=== PATIENT | female | born 1975 | race Caucasian/White ===

== ENCOUNTER 2017-03-25 14:24 | Outpatient (CLI) | payer MEDICAID ==
[~2017-03-25] VITALS: Ht 154.9 cm; Wt 117.0 kg
[~2017-03-25 14:24] MED LIST: HYDR-707 PO; [UNRECOGNIZED DRUG - OTHER]
[2017-03-25 14:32] VITALS: BP 132/75
[2017-03-25] MEDS ORDERED: PRAV10TA PO (14:52)
[2017-03-25] MEDS ORDERED: FURO20TA4 PO (14:52)
[2017-03-25 15:05] LABS: BASOPHILS # (AUTO) 0.1 10^3/uL (0.0-0.1); BASOPHILS % (AUTO) 1 % (0-10); EOSINOPHILS # (AUTO) 0.2 10^3/uL (0.0-0.3); EOSINOPHILS % (AUTO) 2 % (0-10); LYMPHOCYTES # (AUTO) 3.3 X 10^3 (1.0-4.0); LYMPHOCYTES % (AUTO) 27 % (12-44); MEAN CORPUSCULAR HEMOGLOBIN 29 PG (25-34); MEAN CORPUSCULAR HGB CONC 33 G/DL (32-36); MEAN CORPUSCULAR VOLUME 87 FL (80-99); MEAN PLATELET VOLUME 10.1 FL (7.4-10.4); MONOCYTES # (AUTO) 0.8 X 10^3 (0.0-1.0); MONOCYTES % (AUTO) 7 % (0-12); NEUTROPHILS # (AUTO) 7.8 X 10^3 (1.8-7.8); NEUTROPHILS % (AUTO) 64 % (42-75); PLATELET COUNT 266 10^3/uL (130-400); RED BLOOD COUNT 4.59 10^6/uL (4.35-5.85); WHITE BLOOD COUNT 12.2 10^3/uL (4.3-11.0)
[2017-03-26] MEDS ORDERED: HYDR-3730 PO (13:50)
== END 2017-03-25 14:45 | disposition home or self-care (01) ==
LOC: PREOP 14:24
PROVIDERS: ATTEND Surgery Pediatric Surgery
DX: Z01.812 Encounter for preprocedural laboratory examination (principal); Z11.2 Encounter for screening for other bacterial diseases; K82.8 Other specified diseases of gallbladder
CPT/HCPCS: 36415; 85025; 87081

== ENCOUNTER 2017-03-26 10:45 | Day surgery (SDC) | payer MEDICAID ==
[~2017-03-26] VITALS: Ht 154.9 cm; Wt 117.0 kg
[~2017-03-26 10:45] MED LIST changes: +FURO20TA4 PO; +PRAV10TA PO
[2017-03-26] MEDS ORDERED: BUP/EPI 0.5% 1:200,000 (SENSORCAINE) 30 ML VIAL ONE (10:46)
--- NOTE | 2017-03-26 10:54 | Progress Note-Pre Operative ---
Pre-Operative Progress Note H&P Reviewed The H&P was reviewed, patient examined and no changes noted. Date H&P Reviewed: March 26, 2017 Time H&P Reviewed: 10:54 Pre-Operative Diagnosis: symptomatic biliary dyskinesia KINZA BURROWS MD March 26, 2017 10:54 am
[2017-03-26] MEDS ORDERED: ACETAMINOPHEN 325 MG TABLET/CAPLET (TYLENOL) PO PRN (11:00)
[2017-03-26] MEDS ORDERED: ONDANSETRON 4 MG/2 ML (SDV) Z0FRAN IVP PRN ×2 (11:00→14:15)
[2017-03-26] MEDS ORDERED: HYDROcodone/APAP 5 MG/325 MG (LORTAB) TAB PO ONE (11:00)
[2017-03-26] MEDS ORDERED: morphine INJ 10 MG/ML 1ML (SYR OR VIAL) IVP PRN (11:00)
[2017-03-26] MEDS ORDERED: ceFAZolin 1 GM/NS 50 ML IVPB IV ONE ×2 (11:15)
[2017-03-26] MEDS ORDERED: SUCCINYLCHOLINE INJ 100 MG/5 ML SYR ONE (11:26)
[2017-03-26] MEDS ORDERED: proPOfol 200 MG/20 ML (DIPRIVAN) VIAL IV ONE (11:26)
[2017-03-26] MEDS ORDERED: SEVOFLURANE (ULTANE) 15 ML INHAL SOLN ONE ×5 (11:26→13:44)
[2017-03-26] MEDS ORDERED: DEXAMETHASONE PF 10 MG/ML (DECADRON) VIAL ONE (11:26)
[2017-03-26] MEDS ORDERED: ONDANSETRON 4 MG/2 ML (SDV) Z0FRAN ONE ×2 (11:26→13:50)
[2017-03-26] MEDS ORDERED: LACTATED RINGERS 1,000 ML IV ONE ×2 (11:26→13:44)
[2017-03-26] MEDS ORDERED: LIDOCAINE PF 2% 10 ML (XYLOCAINE) AMP ONE (11:26)
[2017-03-26] MEDS ORDERED: ROCURONIUM 50 MG/5 ML (ZEMURON) VIAL IV ONE (11:26)
[2017-03-26] MEDS ORDERED: fentaNYL INJECTION 250 MCG/5 ML AMP ONE (11:27)
[2017-03-26 11:30] VITALS: BP 112/64
[2017-03-26] MEDS ORDERED: FAMOTIDINE 20MG/2ML IV (PEPCID) IV ONE (11:30)
[2017-03-26] MEDS: LACTATED RINGERS 1,000 ML IV PRN ×2 (11:30→13:05)
[2017-03-26] MEDS ORDERED: MIDAZOLAM 2 MG/2 ML (VERSED) VIAL ONE (12:20)
--- NOTE | 2017-03-26 13:48 | Progress Note-Post Operative ---
Post-Operative Progess Note Surgeon (s)/Head Animal Keeper (s) Surgeon KINZA BURROWS MD Head Animal Keeper: florecita abdi PRACTICE OR STUDENT TEACHER Pre-Operative Diagnosis SYMPTOMATIC BILIARY DYSKINESIA Post-Operative Diagnosis same Post-Op Procedure Note Date of Procedure: March 26, 2017 Name of Procedure Performed: laparoscopic cholecystectomy Description of the Procedure: laparoscopic cholecystectomy Findings of the Procedure . Anesthesia Type GET Estimated blood loss (mL): minimal Specimen(s) collected/removed gallbladder KINZA BURROWS MD March 26, 2017 1:48 pm
[2017-03-26] MEDS ORDERED: HYDR-3730 PO (13:50)
[2017-03-26] MEDS ORDERED: morphine INJ 10 MG/ML 1ML (SYR OR VIAL) ONE (13:50)
--- NOTE | 2017-03-26 13:51 | Discharge Inst-Surgical ---
D/C Lap Instructions-MARKOS New, Converted, or Re-Newed RX: RX on Chart Follow Up Appt in 2 weeks Activity as tolerated No driving for 24 hours No driving while on pain medications Incentive Spirometry use every 2 hours while awake Regular Diet Symptoms to Report: Fever over 101 degree F, Nausea/Vomiting Infection Signs and Symptoms to report: Increased redness, Foul odor of wound, Increased drainage Bathing instructions: May shower Operative Area Clean/Dry; Keep incision clean/dry If any problems/questions: Contact your physician or go to Emergency Room KINZA BURROWS MD March 26, 2017 1:51 pm
[2017-03-26] MEDS ORDERED: KETOROLAC 30 MG/ML VIAL ONE (13:57)
[2017-03-26] MEDS ORDERED: HYDROmorphone (DILAUDID) 2 MG/ML VIAL ONE (13:57)
[2017-03-26] MEDS ORDERED: NEOSTIGMINE (BLOXIVERZ ) 1 MG/1ML 10 ML VIAL ONE (14:02)
[2017-03-26] MEDS ORDERED: GLYCOPYRROLATE 0.2 MG/ML (ROBINUL) 2 ML VIAL ONE (14:02)
[2017-03-26] MEDS: morphine INJ 10 MG/ML 1ML (SYR OR VIAL) IVP PRN ×2 (14:07→14:11)
[2017-03-26] MEDS ORDERED: MEPERIDINE (DEMEROL) INJ 50 MG/ML IVP PRN (14:15)
[2017-03-26] MEDS ORDERED: KETOROLAC 30 MG/ML VIAL IVP ONE (14:15)
[2017-03-26] MEDS: HYDROmorphone (DILAUDID) 2 MG/ML VIAL IVP PRN ×3 (14:18→14:32)
[2017-03-26 15:05] VITALS: BP 106/73
[2017-03-26 15:35] VITALS: BP 106/67
[2017-03-26] MEDS ORDERED: HYDROcodone/APAP 5 MG/325 MG (LORTAB) TAB ONE (15:44)
[2017-03-26 16:10] VITALS: BP 97/64
[2017-03-26 16:35] VITALS: BP 97/64
--- NOTE | 2017-03-27 06:03 | OPERATIVE REPORT ---
DATE OF SERVICE: 03/26/2017 ATTENDING PHYSICIAN: Dr. Court Stanford. PREOPERATIVE DIAGNOSIS: Symptomatic biliary dyskinesia. POSTOPERATIVE DIAGNOSIS: Symptomatic biliary dyskinesia. PROCEDURE: Laparoscopic cholecystectomy. SURGEON: Dr. Burrows. CLERICAL ADJUSTER: Jose Luis Parker APRN. ANESTHESIA: General endotracheal. ESTIMATED BLOOD LOSS: Minimal. FINDINGS: Mild to moderate gallbladder wall inflammation with omental adhesions to the gallbladder. 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 DISPOSITION: The patient tolerated the procedure well. The patient is a 41-year-old female with right upper abdominal quadrant pain for the past 2 years which has worsened in the past five months. She has severe episodes of pain with radiation towards the back as well as nausea usually after having meals. In April of 2016, she underwent a gallbladder ultrasound which did not show any gallstones. She then underwent a HIDA scan which did show an ejection fraction of 20% as well as severe reproduction of symptoms consistent with symptomatic biliary dyskinesia. She also did undergo an EGD in 2015 and found to have chronic gastritis, which was negative and biopsies negative for H. pylori. DESCRIPTION OF PROCEDURE: The patient was brought to the operating room, laid supine on the table. After adequate IV pain and sedating medications and general endotracheal intubation, the abdomen was prepped and draped in standard surgical fashion. 0.5% Marcaine with epinephrine was then used to anesthetize the overlying skin in the left upper abdominal quadrant and a small transverse skin incision made using a 15 blade. An 0 silk suture was applied to the medial aspect of the incision for traction and a Veress needle inserted with a low opening pressure of 0 mmHg and the abdomen was then insufflated to 15 mmHg pressure. The Veress needle removed and a 5 mm Xcel trocar placed followed by a 5 mm 45 degree angle laparoscope visualizing the peritoneal cavity. A 4 quadrant abdominal exploration was performed. Mild to moderate chronic inflammatory changes of the gallbladder were identified consistent with a chronic acalculous cholecystitis. There were also multiple string-like adhesions along the dome of the right liver consistent with a previous Wwki-Szmt-Dgkpic syndrome. Under direct visualization, we then proceeded to place a supraumbilical 10 mm port after the skin and peritoneum were anesthetized using 0.5% Marcaine with epinephrine and a transverse skin incision made using a 15 blade. In a similar manner, a right upper abdominal quadrant 5 mm port was placed. The patient was then placed in reverse Trendelenburg position as plane right side up, left side down. The omental adhesions to the gallbladder were then taken down using blunt dissection as well as electrocautery on the hook instrument. The hepatoduodenal ligament was then opened using the hook using blunt dissection as well as cautery. The entire critical view of safety was identified including the triangle of Calot as well as the cystic duct and artery going into the gallbladder as well as the liver behind the proximal gallbladder. A timeout was then taken and the cystic duct and artery were then clipped proximally, distally and cut with EndoShears. The gallbladder was then dissected off of the liver bed using cautery on the hook instrument with visualization, good hemostasis as well as no leaking ducts of Luschka. This area was then irrigated and suctioned out as was the right subphrenic space. The gallbladder was removed through the 10 mm port site using an EndoCatch bag. The fascia and peritoneum to the 10 mm port site was then closed under direct visualization using a Jerald-Chetan device and an 0 Vicryl suture. Abdomen was then desufflated and the remaining ports removed. All skin incisions were closed using 4-0 Monocryl running subcuticular sutures. Wounds were then cleaned and covered with Dermabond. The patient tolerated the procedure well. We will start IV and oral pain medication as well as a clear liquid diet. Once she is tolerating clears and has good pain control with oral pain medications and ambulating well, we will discharge her home. Job ID: [id number] DocumentID: [id number] Dictated Date: 03/26/2017 13:55:49 Automotive Fuel Injection Servicer Date: 03/27/2017 06:02:07 Dictated By: KINZA BURROWS MD [facility]
== END 2017-03-26 16:35 | disposition home or self-care (01) ==
LOC: SDC 10:45
PROVIDERS: ATTEND Surgery Pediatric Surgery
DX: K81.1 Chronic cholecystitis (principal); E78.5 Hyperlipidemia, unspecified; Z87.891 Personal history of nicotine dependence; Z79.899 Other long term (current) drug therapy
CPT/HCPCS: 88304; 94664

== ENCOUNTER 2017-04-17 16:28 | Emergency (ER) | payer MEDICAID ==
[~2017-04-17] VITALS: Ht 154.9 cm; Wt 117.0 kg
[~2017-04-17 16:28] MED LIST changes: +HYDR-3730 PO
--- NOTE | 2017-04-17 16:38 | ED GI ---
General Chief Complaint: Abdominal/GI Problems Stated Complaint: STOMACH PAIN/CRAMPING/NAUSEA Nursing Triage Note: c/o epigastric pain with back pain Sepsis Screen: No Definite Risk Source of Information: Patient Exam Limitations: No Limitations History of Present Illness Time Seen By Provider: 16:37 Initial Comments To ER with epigastric discomfort, back pain, burning sensation in her chest and throat. This began last night. She took Pepto-Bismol at home and an antacid without relief. She had a laparoscopic cholecystectomy done here by Dr. Burrows on 03/26/17. Timing/Duration: 12-24 Hours Severity/Quality: Moderate Location: Epigastric Radiation: No Radiation Activities at Onset: None Associated Symptoms: Nausea/Vomiting Allergies and Home Medications Allergies Coded Allergies: NKANo Known Allergies (Verified Allergy, Unknown, 12/29/05) Home Medications Furosemide 20 Mg Tablet, 10 MG PO DAILY PRN for LEG SWELLING, (Reported) TAKE 1/2 OF 20MG TAB Hydrocodone/Acetaminophen 1 Each Tablet, 1-2 EACH PO Q4H, #35 Prescribed by: KINZA BURROWS on 03/26/17 1350 Pravastatin Sodium 10 Mg Tablet, 10 MG PO HS, (Reported) Review of Systems Constitutional: see HPI, No chills, No fever EENTM: No Symptoms Reported Respiratory: No Symptoms Reported Cardiovascular: No Symptoms Reported Gastrointestinal: See HPI, Abdominal Pain, Nausea, Vomiting Genitourinary: No Symptoms Reported Musculoskeletal: no symptoms reported Skin: no symptoms reported Psychiatric/Neurological: No Symptoms Reported Endocrine: No Symptoms Reported Past Dsktdwt-Ydvjlr-Dzaxjw Hx Patient Social History Alcohol Use: Occasionally Uses Recreational Drug Use: No Smoking Status: Former Smoker Type Used: Cigarettes Recent Foreign Travel: No Contact w/Someone Who Travel: No Recent Infectious Disease Expo: No Recent Hopitalizations: No Immunizations Up To Date Tetanus Booster (TDap): Unknown Seasonal Allergies Seasonal Allergies: No Surgeries HX Surgeries: Yes (C/S x4 ) Surgeries: Appendectomy, Section, Gallbladder, Hysterectomy, Tonsillectomy Respiratory Hx Respiratory Disorders: No Cardiovascular Hx Cardiac Disorders: No Cardiac Disorders: High Cholesterol Neurological Hx Neurological Disorders: No Reproductive System PRIVACY ANALYST History: Hysterectomy Genitourinary Hx Genitourinary Disorders: No Gastrointestinal Hx Gastrointestinal Disorders: Yes Gastrointestinal Disorders: Gall Bladder Disease Musculoskeletal Hx Musculoskeletal Disorders: Yes Musculoskeletal Disorders: Arthritis, Chronic Back Pain Endocrine Hx Endocrine Disorders: No HEENT HX ENT Disorders: No Loss of Vision: Denies Hearing Impairment: Denies Cancer Hx Cancer: No Psychosocial Hx Psychiatric Problems: No Integumentary HX Skin/Integumentary Disorder: No Blood Transfusions Hx Blood Disorders: No Physical Exam Vital Signs VS - Last 72 Hours, by Label 04/17/17 16:34 Temp 98.8 Pulse 81 Resp 18 B/P (MAP) 120/62 Pulse Ox 96 Capillary Refill : Less Than 3 Seconds General Appearance: WD/WN, no apparent distress, obese HEENT: PERRL/EOMI, normal ENT inspection Neck: non-tender, full range of motion Respiratory: normal breath sounds, no respiratory distress, no accessory muscle use Gastrointestinal: normal bowel sounds, non tender, soft Extremities: normal range of motion, non-tender, normal inspection Neurologic/Psychiatric: alert, normal mood/affect, oriented x 3 Skin: normal color, warm/dry Progress/Results/Core Measures Results/Orders Lab Results Laboratory Tests Test 04/17/17 16:35 04/17/17 16:40 Range/Units Urine Color YELLOW Urine Clarity CLEAR Urine pH 6 5-9 Urine Specific [place] 1.020 1.016-1.022 Urine Protein NEGATIVE NEGATIVE Urine Glucose (UA) NEGATIVE NEGATIVE Urine Ketones NEGATIVE NEGATIVE Urine Nitrite NEGATIVE NEGATIVE Urine Bilirubin NEGATIVE NEGATIVE Urine Urobilinogen NORMAL NORMAL MG/DL Urine Leukocyte Esterase NEGATIVE NEGATIVE Urine RBC (Auto) NEGATIVE NEGATIVE Urine RBC NONE /HPF Urine WBC NONE /HPF Urine Squamous Epithelial Cells 10-25 H /HPF Urine Crystals NONE /LPF Urine Bacteria NONE /HPF Urine Casts NONE /LPF Urine Mucus NEGATIVE /LPF Urine Culture Indicated NO White Blood Count 10.9 4.3-11.0 10^3/uL Red Blood Count 4.92 4.35-5.85 10^6/uL Hemoglobin 14.0 11.5-16.0 G/DL Hematocrit 43 35-52 % Mean Corpuscular Volume 86 80-99 FL Mean Corpuscular Hemoglobin 29 25-34 PG Mean Corpuscular Hemoglobin Concent 33 32-36 G/DL Red Cell Distribution Width 13.9 10.0-14.5 % Platelet Count 300 130-400 10^3/uL Mean Platelet Volume 10.2 7.4-10.4 FL Neutrophils (%) (Auto) 66 42-75 % Lymphocytes (%) (Auto) 25 12-44 % Monocytes (%) (Auto) 8 0-12 % Eosinophils (%) (Auto) 2 0-10 % Basophils (%) (Auto) 1 0-10 % Neutrophils # (Auto) 7.1 1.8-7.8 X 10^3 Lymphocytes # (Auto) 2.7 1.0-4.0 X 10^3 Monocytes # (Auto) 0.9 0.0-1.0 X 10^3 Eosinophils # (Auto) 0.2 0.0-0.3 10^3/uL Basophils # (Auto) 0.1 0.0-0.1 10^3/uL Sodium Level 137 135-145 MMOL/L Potassium Level 3.6 3.6-5.0 MMOL/L Chloride Level 108 H 98-107 MMOL/L Carbon Dioxide Level 23 21-32 MMOL/L Anion Gap 6 5-14 MMOL/L Blood Urea Nitrogen 10 7-18 MG/DL Creatinine 0.77 0.60-1.30 MG/DL Estimat Glomerular Filtration Rate > 60 BUN/Creatinine Ratio 13 Glucose Level 210 H 70-105 MG/DL Calcium Level 8.6 8.5-10.1 MG/DL Total Bilirubin 0.4 0.1-1.0 MG/DL Aspartate Amino Transf (AST/SGOT) 11 5-34 U/L Alanine Aminotransferase (ALT/SGPT) 12 0-55 U/L Alkaline Phosphatase 61 40-136 U/L Total Protein 6.3 L 6.4-8.2 G/DL Albumin 3.6 3.2-4.5 G/DL Lipase 16 8-78 U/L My Orders Orders - HECTOR STEPHENS SUPERVISOR LIME Cbc With Automated Diff (04/17/17 16:32) Comprehensive Metabolic Panel (04/17/17 16:32) Lipase (04/17/17 16:32) Ua Culture If Indicated (04/17/17 16:32) Ondansetron Oral Dissolve Tab (Zofran (04/17/17 16:45) Antacid Suspension (Mylanta Suspension (04/17/17 16:45) Lidocaine 2% Viscous 15 Ml (Xylocaine Vi (04/17/17 16:45) Medications Given in ED Current Medications Medications Dose Ordered Sig/Adelaida Route Start Time Stop Time Status Last Admin Dose Admin Al Hydrox/Mg Hydrox/Simethicone 30 ml ONCE ONCE PO 04/17/17 16:45 04/17/17 16:46 DC 04/17/17 16:44 30 ML Lidocaine HCl 15 ml ONCE ONCE PO 04/17/17 16:45 04/17/17 16:46 DC 04/17/17 16:44 15 ML Ondansetron HCl 4 mg ONCE ONCE PO 04/17/17 16:45 04/17/17 16:46 DC 04/17/17 16:44 4 MG Vital Signs/I&O Vital Sign - Last 12Hours 04/17/17 16:34 Temp 98.8 Pulse 81 Resp 18 B/P (MAP) 120/62 Pulse Ox 96 Blood Pressure Mean: 81 Departure Impression Impression: Primary Impression: GERD (gastroesophageal reflux disease) Disposition: HOME, SELF-CARE Condition: Stable Departure-Patient Inst. Decision time for Depature: 17:20 Referrals: VANESSA BULLARD MD (PCP) Primary Care Physician Patient Instructions: Acid Reflux (Gastroesophageal Reflux Disease) in Adults Add. Discharge Instructions: 1. Return to ER for any concerns 2. Follow-up with your doctor later this week 3. Acid assurance senior as directed All discharge instructions reviewed with patient and/or family. Voiced understanding. Scripts Famotidine (Pepcid) 20 Mg Tablet 20 MG PO BID, #10 TAB Prov: HECTOR STEPHENS APRN 04/17/17 Ondansetron (Zofran Odt) 8 Mg Tab.rapdis 8 MG PO Q6H Y for NAUSEA/VOMITING-1ST LINE, #10 TAB Prov: HECTOR STEPHENS APRN 04/17/17 HECTOR STEPHENS APRN April 17, 2017 16:38
[2017-04-17] MEDS ORDERED: ONDANSETRON 4 MG (ZOFRAN) ORAL DISSOLVE TAB PO ONE (16:45)
[2017-04-17] MEDS ORDERED: LIDOCAINE 2% VISCOUS 15 ML UDC PO ONE (16:45)
[2017-04-17] MEDS ORDERED: ANTACID SUSP 30 ML UDC (MYLANTA) PO ONE (16:45)
[2017-04-17 16:52] LABS: BILIRUBIN,URINE NEGATIVE (NEGATIVE); KETONES,URINE NEGATIVE (NEGATIVE); LEUKOCYTE ESTERASE ,URINE NEGATIVE (NEGATIVE); NITRITE,URINE NEGATIVE (NEGATIVE); PH,URINE 6 (5-9); PROTEIN,URINE NEGATIVE (NEGATIVE); UROBILINOGEN,URINE NORMAL (NORMAL)
[2017-04-17 16:54] LABS: BASOPHILS # (AUTO) 0.1 10^3/uL (0.0-0.1); BASOPHILS % (AUTO) 1 % (0-10); EOSINOPHILS # (AUTO) 0.2 10^3/uL (0.0-0.3); EOSINOPHILS % (AUTO) 2 % (0-10); LYMPHOCYTES # (AUTO) 2.7 X 10^3 (1.0-4.0); LYMPHOCYTES % (AUTO) 25 % (12-44); MEAN CORPUSCULAR HEMOGLOBIN 29 PG (25-34); MEAN CORPUSCULAR HGB CONC 33 G/DL (32-36); MEAN CORPUSCULAR VOLUME 86 FL (80-99); MEAN PLATELET VOLUME 10.2 FL (7.4-10.4); MONOCYTES # (AUTO) 0.9 X 10^3 (0.0-1.0); MONOCYTES % (AUTO) 8 % (0-12); NEUTROPHILS # (AUTO) 7.1 X 10^3 (1.8-7.8); NEUTROPHILS % (AUTO) 66 % (42-75); PLATELET COUNT 300 10^3/uL (130-400); RED BLOOD COUNT 4.92 10^6/uL (4.35-5.85); RED CELL DISTRIBUTION WIDTH 13.9 % (10.0-14.5); WHITE BLOOD COUNT 10.9 10^3/uL (4.3-11.0)
[2017-04-17 17:11] LABS: ALANINE AMINOTRANSFERASE 12 U/L (0-55); ALBUMIN 3.6 G/DL (3.2-4.5); ANION GAP 6 MMOL/L (5-14); ASPARTATE AMINO TRANSFERASE 11 U/L (5-34); BILIRUBIN,TOTAL 0.4 MG/DL (0.1-1.0); BLOOD UREA NITROGEN 10 MG/DL (7-18); BUN/CREATININE RATIO 13; CALCIUM 8.6 MG/DL (8.5-10.1); CARBON DIOXIDE 23 MMOL/L (21-32); CHLORIDE 108 MMOL/L (98-107); CREATININE SERUM 0.77 MG/DL (0.60-1.30); GFR ESTIMATED > 60; GLUCOSE 210 MG/DL (70-105); LIPASE 16 U/L (8-78); POTASSIUM 3.6 MMOL/L (3.6-5.0); SODIUM 137 MMOL/L (135-145); TOTAL PROTEIN 6.3 G/DL (6.4-8.2)
[2017-04-17] MEDS ORDERED: ONDA8TAB9 PO (17:21)
[2017-04-17] MEDS ORDERED: FAMO-119 PO (17:21)
[2017-04-17 17:28] VITALS: BP 120/62
== END 2017-04-17 17:28 | disposition home or self-care (01) ==
LOC: EDUNIT# 16:28 → ER 16:30
DX: K21.9 Gastro-esophageal reflux disease without esophagitis (principal); Z90.49 Acquired absence of other specified parts of digestive tract; Z98.890 Other specified postprocedural states
CPT/HCPCS: 36415; 80053; 81000; 83690; 85025; 99283

== ENCOUNTER → 2018-05-11 | Outpatient (CLI) | payer MEDICAID ==
[~2018-05-11] MED LIST changes: +FAMO-119 PO; +ONDA8TAB9 PO
--- NOTE | 2018-05-11 13:01 | Diagnostic Imaging Report ---
INDICATION: Mid back pain all the way down for the past five to six years. No known injury. TECHNIQUE: AP, Lateral and Spot imaging of the lumbar spine CORRELATION STUDY: None FINDINGS: Alignment relatively anatomic. Lumbar vertebral body heights are maintained. Multilevel endplate spurring is present at all levels. The disc spaces overall appear to be the fairly well-maintained. Mild hypertrophic change suggested about the lower lumbar spine facet joints. SI joints unremarkable. Cholecystectomy clips in upper quadrant. Additional suture line in the bilateral hemipelvis. IMPRESSION: No radiographic evidence for acute bony abnormality of the lumbar spine. Mild multilevel degenerative changes present. Dictated by: Dictated on workstation # [id number]
--- NOTE | 2018-05-11 16:20 | Diagnostic Imaging Report ---
INDICATION: Pain and swelling from the instep to the back of the heel x2 years. No known injury. TECHNIQUE: Three views of the left foot. CORRELATION STUDY: None. FINDINGS: There is somewhat of a pes cavum alignment. Slight hallux valgus and primus varus alignment also noted. Incidental note made of a bipartite medial sesamoid bone. Very slight narrowing of the first MTP joint. Remainder of the joint spaces is overall fairly well maintained. Very slight beaking of the navicular bone proximally. There is prominent, 6 mm spurring about the plantar aspect of the calcaneus. Enthesopathy about the Achilles tendon insertion site. Soft tissues appearing unremarkable. IMPRESSION: 1. Somewhat prominent pes cavum alignment of the foot. 2. Prominent plantar calcaneal spur formation. Dictated by: Dictated on workstation # [id number]
--- NOTE | 2018-05-11 16:33 | Diagnostic Imaging Report ---
INDICATION: Mid back pain extending down the spine x5-6 years. No known injury. TECHNIQUE: AP, lateral and swimmer's imaging of the thoracic spine. CORRELATION STUDY: None. FINDINGS: There is slightly accentuated thoracic kyphotic curvature. Thoracic vertebral body heights demonstrate minimal areas of wedging anteriorly. No overall significant loss of vertebral body height. Diffuse thoracic spondylosis and disc space narrowing with reactive endplate sclerosis and osteophyte formation noted diffusely. Partially visualized lower cervical spine demonstrates disc space narrowing and prominent bulky anterior osteophytes to be present. Surgical clips in the epigastric region presumably cholecystectomy clips are present. IMPRESSION: At least moderate severity thoracic spondylosis. Disc space narrowing with reactive endplate osteophyte formation noted. Slightly accentuated thoracic kyphotic curvature. Incidentally noted what appears to be degenerative change about the lower cervical spines with rather prominent large anterior osteophytes present. Dictated by: Dictated on workstation # [id number]
== END ==
LOC: RAD 09:51
PROVIDERS: ATTEND Family Medicine
DX: S89.92XA Unspecified injury of left lower leg, initial encounter (principal); M47.815 Spondylosis without myelopathy or radiculopathy, thoracolumbar region; M51.34 Other intervertebral disc degeneration, thoracic region; M77.32 Calcaneal spur, left foot
CPT/HCPCS: 72072; 72100; 73630

== ENCOUNTER 2018-07-31 14:04 | Emergency (ER) | payer MEDICAID ==
[~2018-07-31] VITALS: Ht 154.9 cm; Wt 77.1 kg
--- OUTSIDE RECORDS SUMMARY | 2018-07-31 14:09 | XMS REPORT ---
Author Author STEPHANIE ATKINS [facility] Address Unknown Care Team Providers Care Veterinary Technologist Name Role Phone STEPHANIE ATKINS Unavailable PROBLEMS Type Condition ICD9-CM Code EHS25-PL Code Onset Dates Condition Status SNOMED Code Problem Edema 782.3 Active 92831967 Problem Unspecified cellulitis and abscess of toe 681.10 Active 064072962 Problem Lumbago 724.2 Active 740015614 Problem Counseling on substance use and abuse V65.42 Active 439559805 Problem Other and unspecified hyperlipidemia 272.4 Active 46714885 Problem External thrombosed hemorrhoids 455.4 Active 21185462 Problem Unspecified constipation 564.00 Active 66285916 Problem Blood in stool 578.1 Active 706508263 Problem Unspecified hemorrhoids without mention of complication 455.6 Active 64016103 Problem Acute maxillary sinusitis 461.0 Active 40181155 ALLERGIES Substance Reaction Event Type Date Status N.K.D.A. Unknown Non Drug Allergy Oct, Unknown SOCIAL HISTORY No smoking Hx information available PLAN OF CARE VITAL SIGNS Height 61 in 2016-11-07 Blood pressure systolic 115 mmHg 2016-11-07 Blood pressure diastolic 58 mmHg 2016-11-07 MEDICATIONS Unknown Medications RESULTS No Results PROCEDURES Procedure Date Ordered Related Diagnosis Body Site LTD ORAL EVALUATION - PROBLEM FOCUS Nov 07, 2016 INTRAORL-PERIAPICAL 1 FILM 90314 Nov 07, 2016 EXTRAC ERUPTED TOOTH/EXPOSED ROOT Nov 07, 2016 IMMUNIZATIONS No Known Immunizations
--- OUTSIDE RECORDS SUMMARY | 2018-07-31 14:09 | XMS REPORT ---
Author Author LUMA BELL Organization [facility] Address [address] [place] [address] Care Team Providers Care Wrapper And Preserver Name Role Phone LUMA BELL Unavailable PROBLEMS Type Condition ICD9-CM Code BBO44-GF Code Onset Dates Condition Status SNOMED Code Problem Edema 782.3 Active 224946484 Problem Unspecified cellulitis and abscess of toe 681.10 Active 050962359 Problem Lumbago 724.2 Active 541394293 Problem Counseling on substance use and abuse V65.42 Active 519123917 Problem Other and unspecified hyperlipidemia 272.4 Active 23667686 Problem External thrombosed hemorrhoids 455.4 Active 72811618 Problem Unspecified constipation 564.00 Active 24579644 Problem Blood in stool 578.1 Active 514309681 Problem Unspecified hemorrhoids without mention of complication 455.6 Active 61452462 Problem Acute maxillary sinusitis 461.0 Active 50435246 ALLERGIES No Information ENCOUNTERS Encounter Location Date Diagnosis [facility] [id number] [place] [address] Jul, No condition on [place] I Z03.89 [facility] [id number] [place] [phone] Oct, Dental examination Z01.20 and Dental caries K02.9 [facility] [id number] [place] [address] Feb, [facility] [address] [address] Feb, [facility] [id number] [place] [phone] Dec, [facility] [id number] [place] [address] Dec, [facility] [address] [id number] [place] [phone] Jul, [facility] [address] [address] Jul, [facility] [address] [id number] [place] [id number] Feb, [facility] [address] [address] Feb, [facility] [address] [id number] [place] [id number] Feb, [facility] [address] [address] Feb, [facility] [address] [id number] [place] [id number] Oct, [facility] [address] [address] Oct, [facility] [address] [id number] [place] [id number] March, [facility] [address] [id number] [place] [id number] March, [facility] [address] [id number] [place] [id number] Dec, [facility] [address] [id number] [place] [id number] Dec, [facility] [address] [address] Dec, [facility] [address] [id number] [place] [id number] Dec, [facility] [address] [facility] [id number] [place] [phone] Dec, [facility] [address] [address] Dec, [facility] [address] [address] Aug, [facility] [address] [facility] [id number] [place] [address] Aug, [facility] [address] [facility] [id number] [place] [address] Jun, [facility] [address] [facility] [id number] [place] [address] Apr, IMMUNIZATIONS No Known Immunizations SOCIAL HISTORY Never Assessed REASON FOR VISIT Psychological evaluation for bariatric surgery. PLAN OF CARE VITAL SIGNS MEDICATIONS Unknown Medications RESULTS No Results PROCEDURES Procedure Date Ordered Result Body Site Psych diagnostic evaluation, new patient Jul 28, 2017 INSTRUCTIONS MEDICATIONS ADMINISTERED No Known Medications
--- OUTSIDE RECORDS SUMMARY | 2018-07-31 14:10 | XMS REPORT | Continuity of Care Document ---
Author Author Formerly [facility] Address Unknown Phone Unavailable Allergies Active Description Code Type Severity Reaction Onset Reported/Identified Relationship to Patient Clinical Status Yes NO KNOWN DRUG ALLERGIES UNKNOWN NO KNOWN DRUG ALLERG Yes [id number] REDUCTASE INHIBITORS UNKNOWN GI PROBLEMS - DIARRH 10/22 Yes NKANo Known Allergies NKA Miscellaneous Allergy Unknown N/A 12/29/2005 Medications Medication Packaging Start Date Stop Date Route Dosage Sig NORMAL SALINE 1000CC IV BAG INJ 0.9 % (NS 1000CC IV BAG) ml 09/18/2017 10/03/2017 CONTINUOUSEVERY 0 Hour LACTATED RINGERS 1000CC IV BAG INJ ml 10/02/2017 10/03/2017 CONTINUOUSEVERY 0 Hour FENTANYL INJ 100 MCG/2CC VIAL MCG 10/21/2017 10/21/2017 ONCE&0644 LACTATED RINGERS 1000CC IV BAG INJ ml 10/21/2017 10/22/2017 CONTINUOUSEVERY 0 Hour SCOPOLAMINE PATCH PAT 1.5 MG (TRANSDERM SCOP) MG 10/21/2017 10/21/2017 ONCE&0800 CEFAZOLIN VIAL INJ 1 GM (ANCEF) GM 10/21/2017 10/21/2017 ONCE&0845 METOCLOPRAMIDE VIAL INJ 10 MG/2CC (REGLAN 2CC VIAL) MG 10/21/2017 10/21/2017 ONCE&1158 MORPHINE ASSOCIATE MERCHANDISE PLANNER SYRINGE INJ 30 MG/30CC (MORPHINE ASSOCIATE MERCHANDISE PLANNER SYRINGE) MG 10/21/2017 10/24/2017 CONTINUOUSEVERY 0 Hour SUCRALFATE TAB 1 GM (CARAFATE) GM 10/21/2017 10/28/2017 QID&0000,0600,1200,1800 PROMETHAZINE VIAL INJ 25 MG/CC (PHENERGAN VIAL) MG 10/21/2017 10/31/2017 PRN QID ENALAPRIL VIAL INJ 1.25 MG/CC (VASOTEC VIAL) MG 10/21/2017 10/24/2017 PRN Q6H DIAZEPAM SYRINGE INJ 5 MG/CC (VALIUM SYRINGE) MG 10/21/2017 10/28/2017 PRN Q6H NORMAL SALINE 1000CC IV BAG INJ 0.9 % (NS 1000CC IV BAG) ml 10/21/2017 11/05/2017 CONTINUOUSEVERY 0 Hour ONDANSETRON VIAL INJ 4 MG/2CC (ZOFRAN 2CC VIAL) MG 10/21/2017 10/28/2017 PRN Q4H ALBUTEROL SVN 2.5MG/3CC LIQ 2.5 MG (PROVENTIL BREANNA 2.5MG/3CC) MG 10/21/2017 10/23/2017 PRN TID CEFAZOLIN PREMIX IV BAG IV 1 GM/50CC (ANCEF PREMIX IV BAG) GM 10/21/2017 10/21/2017 Q8H&1400 PANTOPRAZOLE TAB 40 MG (PROTONIX) MG 10/21/2017 10/28/2017 BID&0800,2000 Heparin, FLUSH IV syringe 500 units UNITS 10/21/2017 10/31/2017 BID&0800,2000 CEFAZOLIN PREMIX IV BAG IV 1 GM/50CC (ANCEF PREMIX IV BAG) GM 10/21/2017 10/22/2017 TID&0800 PANTOPAZOLE VIAL INJ 40 MG (PROTONIX IV) MG 10/22/2017 10/31/2017 Daily&0900 HYDROMORPHONE TAB 2 MG (DILAUDID) MG 10/22/2017 10/22/2017 ONCE&1047 HYDROCODONE/APAP 7.5/325 ELIX LIQ 15 CC (LORTAB ELIX 7.5/325) ML 10/22/2017 11/01/2017 PRN Q4H Hydromorphone inj 2mg/cc vial (Dilaudid) MG 10/22/2017 10/22/2017 ONCE&1750 POLY/BACI/NEOM OINT OINT (NEOSPORIN) tripp 10/24/2017 10/24/2017 ONCE&1848 PHENAZOPYRIDINE TAB 100 MG (PYRIDIUM) MG 01/31/2018 01/31/2018 ONCE&1522 KETOROLAC VIAL INJ 30 MG/CC (TORADOL VIAL) MG 01/31/2018 01/31/2018 PRN ONCE NORMAL SALINE 500CC IV BAG INJ 0.9 % (NS 500CC IV BAG) ml 01/31/2018 01/31/2018 ONCE&1559 FENTANYL INJ 100 MCG/2CC VIAL MCG 01/31/2018 01/31/2018 ONCE&1623 TAMSULOSIN CAP 0.4 MG (FLOMAX) MG 01/31/2018 01/31/2018 ONCE&1710 TAMSULOSIN CAP 0.4 MG (FLOMAX) MG 01/31/2018 02/06/2018 QPM&1800 TIZANIDINE TAB 4 MG (ZANAFLEX) MG 01/31/2018 02/07/2018 PRN BID SUCRALFATE TAB 1 GM (CARAFATE) GM 01/31/2018 02/07/2018 TID&0800,1400,2000 PANTOPRAZOLE TAB 40 MG (PROTONIX) MG 02/01/2018 02/07/2018 Daily&0900 FUROSEMIDE TAB 20 MG (LASIX) MG 10/201802/07/2018 Daily&0900 MELOXICAM TAB 7.5 MG (MOBIC) MG 10/201802/07/2018 Daily&0900 LACTATED RINGERS 1000CC IV BAG INJ ml 05/14/2018 05/15/2018 CONTINUOUSEVERY 0 Hour Problems Date Dx Coded Attending Type Code Diagnosis Diagnosed By 05/08/2010 V70.5 PREEMPLOYMENT/ PRESCHOOL EXAM 05/08/2010 SEAN REDMOND DO V70.5 PREEMPLOYMENT/PRESCHOOL EXAM 05/08/2010 SEAN REDMOND DO V70.5 PREEMPLOYMENT/PRESCHOOL EXAM 05/29/2010 278.00 OBESITY, UNSPECIFIED 05/29/2010 780.79 OTHER MALAISE AND FATIGUE 05/29/2010 786.09 RESPIRATORY ABNORMALITIES, OTHER 05/29/2010 SEAN REDMOND DO 278.00 OBESITY, UNSPECIFIED 05/29/2010 SEAN REDMOND DO 780.79 OTHER MALAISE AND FATIGUE 05/29/2010 SEAN REDMOND DO 786.09 RESPIRATORY ABNORMALITIES, OTHER 05/29/2010 SEAN REDMOND DO 278.00 OBESITY, UNSPECIFIED 05/29/2010 SEAN REDMOND DO 780.79 OTHER MALAISE AND FATIGUE 05/29/2010 SEAN REDMOND DO 786.09 RESPIRATORY ABNORMALITIES, OTHER 06/17/2010 250.00 DIABETES MELLITUS TYPE 2 06/17/2010 SEAN REDMOND DO 250.00 DIABETES MELLITUS TYPE 2 06/17/2010 SEAN REDMOND DO 250.00 DIABETES MELLITUS TYPE 2 07/03/2010 305.1 NONDEPENDENT ABUSE OF DRUGS, TOBACCO USE DISORDER 07/03/2010 SEAN REDMOND DO 305.1 NONDEPENDENT ABUSE OF DRUGS, TOBACCO USE DISORDER 07/03/2010 SEAN REDMOND DO 305.1 NONDEPENDENT ABUSE OF DRUGS, TOBACCO USE DISORDER 08/28/2011 459.81 VENOUS INSUFFICIENCY 08/28/2011 465.9 UPPER RESPIRATORY INFECTION 08/28/2011 V03.82 Need For Vaccination Pneumococcal 08/28/2011 V04.81 Vaccines Prophylactic Need Against Influenza 08/28/2011 SEAN REDMOND DO 459.81 VENOUS INSUFFICIENCY 08/28/2011 SEAN REDMOND DO 465.9 UPPER RESPIRATORY INFECTION 08/28/2011 SEAN REDMOND DO V03.82 Need For Vaccination Pneumococcal 08/28/2011 SEAN REDMOND DO V04.81 Vaccines Prophylactic Need Against Influenza 08/28/2011 SEAN REDMOND DO 459.81 VENOUS INSUFFICIENCY 08/28/2011 SEAN REDMOND DO 465.9 UPPER RESPIRATORY INFECTION 08/28/2011 SEAN REDMOND DO V03.82 Need For Vaccination Pneumococcal 08/28/2011 SEAN REDMOND DO V04.81 Vaccines Prophylactic Need Against Influenza 08/29/2011 278.01 OBESITY MORBID 08/29/2011 SEAN REDMOND DO 278.01 OBESITY MORBID 08/29/2011 SEAN REDMODN DO 278.01 OBESITY MORBID 12/26/2011 455.4 EXTERNAL THROMBOSED HEMORRHOIDS 12/26/2011 724.2 BACK PAIN, LOWER 12/26/2011 SEAN REDMOND DO 455.4 EXTERNAL THROMBOSED HEMORRHOIDS 12/26/2011 SEAN REDMOND DO 724.2 BACK PAIN, LOWER 12/26/2011 SEAN REDMOND DO 455.4 EXTERNAL THROMBOSED HEMORRHOIDS 12/26/2011 SEAN REDMOND DO 724.2 BACK PAIN, LOWER 01/05/2012 455.6 HEMORRHOIDS 01/05/2012 564.00 CONSTIPATION 01/05/2012 578.1 HEMATOCHEZIA 01/05/2012 SEAN REDMOND DO 455.6 HEMORRHOIDS 01/05/2012 SEAN REDMOND DO 564.00 CONSTIPATION 01/05/2012 SEAN REDMOND DO 578.1 HEMATOCHEZIA 01/05/2012 NYLA MAKIMILIA K 455.6 HEMORRHOIDS 01/05/2012 REDMOND SEAN MAKI K 564.00 CONSTIPATION 01/05/2012 REDMOND SEAN MAKI K 578.1 HEMATOCHEZIA 01/07/2012 272.4 DYSLIPIDEMIA 01/07/2012 NYLA MAKIMILIA K 272.4 DYSLIPIDEMIA 01/07/2012 NYLA MAKIMILIA K 272.4 DYSLIPIDEMIA 04/01/2012 V65.42 Intervention And Counseling On Cessation Of Tobacco Use 04/01/2012 REDMOND MILI MAKIA K V65.42 Intervention And Counseling On Cessation Of Tobacco Use 04/01/2012 NYLA MAKI SEAN K V65.42 Intervention And Counseling On Cessation Of Tobacco Use 11/09/2012 681.10 CELLULITIS OF THE TOE LEFT FOOT 11/09/2012 REDMOND SEAN MAKI K 681.10 CELLULITIS OF THE TOE LEFT FOOT 11/09/2012 REDMOND MILI MAKIA K 681.10 CELLULITIS OF THE TOE LEFT FOOT 03/03/2014 SEAN REDMOND DO K 782.3 EDEMA 03/03/2014 REDMOND MILI MAKIA K 782.3 EDEMA 08/14/2014 REDMOND MILI MAKIA K 461.0 ACUTE MAXILLARY SINUSITIS 03/25/2017 KINZA BURROWS MD, Ot K82.8 OTHER SPECIFIED DISEASES OF GALLBLADDER 03/25/2017 KINZA BURROWS MD Ot Z01.812 ENCOUNTER FOR PREPROCEDURAL LABORATORY E 03/25/2017 KINZA BURROWS MD, Ot Z11.2 ENCOUNTER FOR SCREENING FOR OTHER BACTER 03/26/2017 KINZA BURROWS MD, Ot E78.5 HYPERLIPIDEMIA, UNSPECIFIED 03/26/2017 KINZA BURROWS MD, Ot K81.1 CHRONIC CHOLECYSTITIS 03/26/2017 KINZA BURROWS MD, Ot Z79.899 OTHER ALF (CURRENT) DRUG THERAPY 03/26/2017 KINZA BURROWS MD, Ot Z87.891 PERSONAL HISTORY OF NICOTINE DEPENDENCE 04/01/2017 KINZA BURROWS MD, Ot E78.5 HYPERLIPIDEMIA, UNSPECIFIED 04/01/2017 KINZA BURROWS MD, Ot K81.1 CHRONIC CHOLECYSTITIS 04/01/2017 KINZA BURROWS MD, Ot Z79.899 OTHER SCREENING REPRESENTATIVE (CURRENT) DRUG THERAPY 04/01/2017 MARKOS OVERTON, KINZA Ot Z87.891 PERSONAL HISTORY OF NICOTINE DEPENDENCE 04/17/2017 HECTOR DONAHUE DATA REPORT ANALYST Ot K21.9 GASTRO-ESOPHAGEAL REFLUX DISEASE WITHOUT 04/17/2017 HECTOR DONAHUE DATA REPORT ANALYST Ot R10.13 EPIGASTRIC PAIN 04/17/2017 HECTOR DONAHUE DATA REPORT ANALYST Ot Z90.49 ACQUIRED ABSENCE OF OTHER SPECIFIED PART 04/17/2017 HECTOR DONAHUE DATA REPORT ANALYST Ot Z98.890 OTHER SPECIFIED POSTPROCEDURAL STATES 04/21/2017 HECTOR DONAHUE DATA REPORT ANALYST Ot K21.9 GASTRO-ESOPHAGEAL REFLUX DISEASE WITHOUT 04/21/2017 HECTOR DONAHUE DATA REPORT ANALYST Ot R10.13 EPIGASTRIC PAIN 04/21/2017 HECTOR DONAHUE APRN Ot Z90.49 ACQUIRED ABSENCE OF OTHER SPECIFIED PART 04/21/2017 HECTOR DONAHUE DATA REPORT ANALYST Ot Z98.890 OTHER SPECIFIED POSTPROCEDURAL STATES 09/03/2017 BULLARD, VANESSA A 782.3 EDEMA 09/03/2017 BULLARD, VANESSA A R60.0 LOCALIZED EDEMA 09/03/2017 BULLARD, VANESSA W 110.4 DERMATOPHYTOSIS OF FOOT 09/03/2017 BULLARD, VANESSA A 782.3 EDEMA 09/03/2017 BULLARD, VANESSA W B35.3 TINEA PEDIS 09/03/2017 BULLARD, VANESSA A R60.0 LOCALIZED EDEMA 09/03/2017 BULLARD, VANESSA W 110.4 DERMATOPHYTOSIS OF FOOT 09/03/2017 BULLARD, VANESSA A 782.3 EDEMA 09/03/2017 BULLARD, VANESSA W B35.3 TINEA PEDIS 09/03/2017 BULLARD, VANESSA A R60.0 LOCALIZED EDEMA 09/18/2017 Mikey Gonzáles 780.60 FEVER, UNSPECIFIED 09/18/2017 Mikey Gonzáles R50.9 FEVER, UNSPECIFIED 09/18/2017 Mikey Gonzáles V64.1 SURGICAL OR OTHER PROCEDURE NOT CARRIED OUT BECAUSE OF CONTRAINDICATION 09/18/2017 Mikey Gonzáles Z53.09 PROC/TRTMT NOT CARRIED OUT BECAUSE OF CONTRAINDICATION 10/02/2017 Mikey Gonzáles 530.81 ESOPHAGEAL REFLUX 10/02/2017 Mikey Gonzáles 535.10 ATROPHIC GASTRITIS, WITHOUT MENTION OF HEMORRHAGE 10/02/2017 Mikey Gonzáles 552.3 DIAPHRAGMATIC HERNIA WITH OBSTRUCTION 10/02/2017 Mikey Gonzáles A K21.9 GASTRO-ESOPHAGEAL REFLUX DISEASE WITHOUT ESOPHAGITIS 10/02/2017 Mikey Gonzáles K29.50 UNSPECIFIED CHRONIC GASTRITIS WITHOUT BLEEDING 10/02/2017 Mikey Gonzáles K44.9 DIAPHRAGMATIC HERNIA WITHOUT OBSTRUCTION OR GANGRENE 10/22/2017 Mikey Gonzáles 250.00 DIABETES MELLITUS WITHOUT MENTION OF COMPLICATION, TYPE II OR UNSPECIFIED TYPE, NOT STATED UNCONTROLLED 10/22/2017 Mikey Gonzáles 272.4 OTHER AND UNSPECIFIED HYPERLIPIDEMIA 10/22/2017 Mikey Gonzáles 278.01 10/22/2017 Mikey Gonzáles 454.9 ASYMPTOMATIC VARICOSE VEINS 10/22/2017 Mikey Gonzáles 530.81 10/22/2017 Mikey Gonzáles 552.3 10/22/2017 Mikey Gonzáles 715.30 OSTEOARTHROSIS, LOCALIZED, NOT SPECIFIED WHETHER PRIMARY OR SECONDARY, INVOLVING UNSPECIFIED SITE 10/22/2017 Mikey Gonzáles E11.9 TYPE 2 DIABETES MELLITUS WITHOUT COMPLICATIONS 10/22/2017 Mikey Gonzáles E66.01 MORBID (SEVERE) OBESITY DUE TO EXCESS CALORIES 10/22/2017 Mikey Gonzáles E78.5 HYPERLIPIDEMIA, UNSPECIFIED 10/22/2017 Mikey Gonzáles I83.93 ASYMPTOMATIC VARICOSE VEINS OF BILATERAL LOWER EXTREMITIES 10/22/2017 Mikey Gonzáles K21.9 GASTRO-ESOPHAGEAL REFLUX DISEASE WITHOUT ESOPHAGITIS 10/22/2017 Mikey Gonzáles K44.9 DIAPHRAGMATIC HERNIA WITHOUT OBSTRUCTION OR GANGRENE 10/22/2017 Mikey Gonzáles M19.90 UNSPECIFIED OSTEOARTHRITIS, UNSPECIFIED SITE 10/22/2017 Mikey Gonzáles V85.42 10/22/2017 Mikey Gonzáles Z68.42 BODY MASS INDEX (BMI) 45.0-49.9, ADULT 11/24/2017 VANESSA BULLARD W 681.02 ONYCHIA AND PARONYCHIA OF FINGER 11/24/2017 BULLARDDEJAHVANESSA W L03.019 CELLULITIS OF UNSPECIFIED FINGER 11/24/2017 BULLARD, VANESSA W 681.02 ONYCHIA AND PARONYCHIA OF FINGER 11/24/2017 BULLARDDEJAHVANESSA W L03.019 CELLULITIS OF UNSPECIFIED FINGER 11/24/2017 BULLARDVANESSA WOODARD W 681.02 ONYCHIA AND PARONYCHIA OF FINGER 11/24/2017 BULLARDVANESSA WOODARD W L03.019 CELLULITIS OF UNSPECIFIED FINGER 01/31/2018 Hector Donahue 592.1 CALCULUS OF URETER 01/31/2018 Hector Donahue N20.1 CALCULUS OF URETER 05/12/2018 VANESSA BULLARD MD L Ot 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 05/12/2018 VANESSA BULLARD MD L Ot M51.34 OTHER INTERVERTEBRAL DISC DEGENERATION, 05/12/2018 VANESSA BULLARD MD L Ot M77.32 CALCANEAL SPUR, LEFT FOOT 05/12/2018 VANESSA BULLARD MD L Ot S89.92XA UNSPECIFIED INJURY OF LEFT LOWER LEG, IN 05/17/2018 VANESSA BULLARD MD L Ot 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 05/17/2018 VANESSA BULLARD MD L Ot M51.34 OTHER INTERVERTEBRAL DISC DEGENERATION, 05/17/2018 VANESSA BULLARD MD L Ot M77.32 CALCANEAL SPUR, LEFT FOOT 05/17/2018 VANESSA BULLARD MD L Ot S89.92XA UNSPECIFIED INJURY OF LEFT LOWER LEG, IN 05/31/2018 VANESSA BULLARD MD L Ot 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 05/31/2018 VANESSA BULLARD MD L Ot M51.34 OTHER INTERVERTEBRAL DISC DEGENERATION, 05/31/2018 VANESSA BULLARD MD L Ot M77.32 CALCANEAL SPUR, LEFT FOOT 05/31/2018 VANESSA BULLARD MD L Ot S89.92XA UNSPECIFIED INJURY OF LEFT LOWER LEG, IN Procedures Code Description [place] [address] ROUTINE VENIPUNCTURE 03/03/2014 98856 A1C (IN-HOUSE) 03/03/2014 86740 MICRO ALBUMIN-IN HOUSE 03/03/2014 41447 CMP 03/03/2014 95440 LIPID PANEL 03/03/2014 13013 TSH 03/03/2014 51455 CBC 03/03/2014 28214 A1C (IN-HOUSE) 08/14/2014 Results Test Result Range Thyroid Stimulating Hormone - 03/18/17 17:38 TSH 1.07 mIU/mL 0.32-5.00 FSH and LH - 03/18/17 17:38 LH 18.1 MIU/ML FSH 9.3 MIU/ML Methicillin resistant Staphylococcus aureus (MRSA) screening culture - 14:40 Methicillin resistant Staphylococcus aureus (MRSA) screening culture NEG NRG Complete blood count (CBC) with automated white blood cell (WBC) differential - 03/25/17 14:41 Blood leukocytes automated count (number/volume) 12.2 10*3/uL 4.3-11.0 Blood erythrocytes automated count (number/volume) 4.59 10*6/uL 4.35-5.85 Venous blood hemoglobin measurement (mass/volume) 13.3 g/dL 11.5-16.0 Blood hematocrit (volume fraction) 40 % 35-52 Automated erythrocyte mean corpuscular volume 87 [foz_us] 80-99 Automated erythrocyte mean corpuscular hemoglobin (mass per erythrocyte) 29 pg 25-34 Automated erythrocyte mean corpuscular hemoglobin concentration measurement ( mass/volume) 33 g/dL 32-36 Automated erythrocyte distribution width ratio 14.0 % 10.0-14.5 Automated blood platelet count (count/volume) 266 10*3/uL 130-400 Automated blood platelet mean volume measurement 10.1 [foz_us] 7.4-10.4 Automated blood neutrophils/100 leukocytes 64 % 42-75 Automated blood lymphocytes/100 leukocytes 27 % 12-44 Blood monocytes/100 leukocytes 7 % 0-12 Automated blood eosinophils/100 leukocytes 2 % 0-10 Automated blood basophils/100 leukocytes 1 % 0-10 Blood neutrophils automated count (number/volume) 7.8 10*3 1.8-7.8 Blood lymphocytes automated count (number/volume) 3.3 10*3 1.0-4.0 Blood monocytes automated count (number/volume) 0.8 10*3 0.0-1.0 Automated eosinophil count 0.2 10*3/uL 0.0-0.3 Automated blood basophil count (count/volume) 0.1 10*3/uL 0.0-0.1 Complete urinalysis with reflex to culture - 04/17/17 16:35 Urine color determination YELLOW NRG Urine clarity determination CLEAR NRG Urine pH measurement by test strip 6 5-9 Specific gravity of urine by test strip 1.020 1.016- 1.022 Urine protein assay by test strip, semi-quantitative NEGATIVE NEGATIVE Urine glucose detection by automated test strip NEGATIVE NEGATIVE Erythrocytes detection in urine sediment by light microscopy NEGATIVE NEGATIVE Urine ketones detection by automated test strip NEGATIVE NEGATIVE Urine nitrite detection by test strip NEGATIVE NEGATIVE Urine total bilirubin detection by test strip NEGATIVE NEGATIVE Urine urobilinogen measurement by automated test strip (mass/volume) NORMAL NORMAL Urine leukocyte esterase detection by dipstick NEGATIVE NEGATIVE Automated urine sediment erythrocyte count by microscopy (number/high power field) NONE NRG Automated urine sediment leukocyte count by microscopy (number/high power field ) NONE NRG Bacteria detection in urine sediment by light microscopy NONE NRG Squamous epithelial cells detection in urine sediment by light microscopy 10-25 NRG Crystals detection in urine sediment by light microscopy NONE NRG Casts detection in urine sediment by light microscopy NONE NRG Mucus detection in urine sediment by light microscopy NEGATIVE NRG Complete urinalysis with reflex to culture NO NRG Complete blood count (CBC) with automated white blood cell (WBC) differential - 04/17/17 16:40 Blood leukocytes automated count (number/volume) 10.9 10*3/uL 4.3-11.0 Blood erythrocytes automated count (number/volume) 4.92 10*6/uL 4.35-5.85 Venous blood hemoglobin measurement (mass/volume) 14.0 g/dL 11.5-16.0 Blood hematocrit (volume fraction) 43 % 35-52 Automated erythrocyte mean corpuscular volume 86 [foz_us] 80-99 Automated erythrocyte mean corpuscular hemoglobin (mass per erythrocyte) 29 pg 25-34 Automated erythrocyte mean corpuscular hemoglobin concentration measurement ( mass/volume) 33 g/dL 32-36 Automated erythrocyte distribution width ratio 13.9 % 10.0-14.5 Automated blood platelet count (count/volume) 300 10*3/uL 130-400 Automated blood platelet mean volume measurement 10.2 [foz_us] 7.4-10.4 Automated blood neutrophils/100 leukocytes 66 % 42-75 Automated blood lymphocytes/100 leukocytes 25 % 12-44 Blood monocytes/100 leukocytes 8 % 0-12 Automated blood eosinophils/100 leukocytes 2 % 0-10 Automated blood basophils/100 leukocytes 1 % 0-10 Blood neutrophils automated count (number/volume) 7.1 10*3 1.8-7.8 Blood lymphocytes automated count (number/volume) 2.7 10*3 1.0-4.0 Blood monocytes automated count (number/volume) 0.9 10*3 0.0-1.0 Automated eosinophil count 0.2 10*3/uL 0.0-0.3 Automated blood basophil count (count/volume) 0.1 10*3/uL 0.0-0.1 Comprehensive metabolic panel - 04/17/17 16:40 Serum or plasma sodium measurement (moles/volume) 137 mmol/L 135-145 Serum or plasma potassium measurement (moles/volume) 3.6 mmol/L 3.6-5.0 Serum or plasma chloride measurement (moles/volume) 108 mmol/L 98-107 Carbon dioxide 23 mmol/L 21-32 Serum or plasma anion gap determination (moles/volume) 6 mmol/L 5-14 Serum or plasma urea nitrogen measurement (mass/volume) 10 mg/dL 7-18 Serum or plasma creatinine measurement (mass/volume) 0.77 mg/dL 0.60-1.30 Serum or plasma urea nitrogen/creatinine mass ratio 13 NRG Serum or plasma creatinine measurement with calculation of estimated glomerular filtration rate > NRG Serum or plasma glucose measurement (mass/volume) 210 mg/dL 70-105 Serum or plasma calcium measurement (mass/volume) 8.6 mg/dL 8.5-10.1 Serum or plasma total bilirubin measurement (mass/volume) 0.4 mg/dL 0.1-1.0 Serum or plasma alkaline phosphatase measurement (enzymatic activity/volume) 61 U/L 40-136 Serum or plasma aspartate aminotransferase measurement (enzymatic activity/ volume) 11 U/L 5-34 Serum or plasma alanine aminotransferase measurement (enzymatic activity/volume ) 12 U/L 0-55 Serum or plasma protein measurement (mass/volume) 6.3 g/dL 6.4-8.2 Serum or plasma albumin measurement (mass/volume) 3.6 g/dL 3.2-4.5 Lipase - 04/17/17 16:40 Lipase 16 U/L 8-78 Thyroid Stimulating Hormone - 09/02/17 17:00 TSH 3.43 mIU/mL 0.32-5.00 Protime - 09/14/17 12:43 INR 1.1 1.0-4.0 Protime 12.3 Sec 9.9-12.8 Surgical Pathology - 10/02/17 12:43 Surg Path Sent to [facility] Vitamin D, 25 OH - 10/20/17 12:20 Vitamin D, 25 OH 19.50 ng/mL 25.00-100.00 MRSA Screen - 10/20/17 12:20 FINAL CULTURE RESULTS MRSA Negative Nasal Culture MEDIA PLATED Setup at 12:52 on 10/20/2017 Zinc, Serum or Plasma - 10/20/17 12:20 ZINC, PLASMA OR SERUM 77 UG/DL 56-134 Selenium, Serum or Plasma - 10/20/17 12:20 SELENIUM, SERUM/PLASMA 142 UG/L 79-326 Vitamin B7 (Biotin) - 10/20/17 12:20 VITAMIN B7 0.06 NG/ML 0.05-0.83 Vitamin B3 (Niacin) - 10/20/17 12:20 NICOTINAMIDE 9.3 NG/ML 5.2-72.1 NICOTINIC ACID <5.0 NG/ML 0.0-5.0 Vitamin B7 - 10/20/17 12:20 Vitamin B7 0.06 ng/mL 0.05-0.83 Copper, Serum - 10/20/17 12:20 Copper, Serum 146 ug/dL 72-166 Zinc, Plasma or Serum - 10/20/17 12:20 Zinc, Plasma or Serum 77 ug/dL 56-134 Selenium, Serum/Plasma - 10/20/17 12:20 Selenium, Serum/Plasma 142 ug/L 79-326 Vitamin B3 (Niacin+Metabolite) - 10/20/17 12:20 Nicotinamide 9.3 ng/mL 5.2-72.1 Nicotinic Acid <5.0 ng/mL 0.0-5.0 Vitamin B1 (Thiamine), Blood - 10/20/17 12:20 Vit. B1, Whole Blood 129.3 nmol/L 66.5-200.0 XM (2) LRPC - 10/21/17 08:20 CROSSMATCH COMPATIBLE X 2 Hct 37.7 % 36.0-46.0 Hgb 12.3 g/dL 13.0-15.0 Vitamin A, Serum - 10/21/17 08:20 VITAMIN A, SERUM 31 UG/DL 20-65 Vitamin A, Serum - 10/21/17 08:20 Vitamin A, Serum 31 ug/dL 20-65 EKG - 10/21/17 08:37 EKG Complete Urine Culture - 10/21/17 09:08 PRELIM CULTURE RESULTS No Growth 24 hours FINAL CULTURE RESULTS No Growth 48 hours MEDIA PLATED Setup at 12:34 on 10/21/2017 CULTURE SOURCE cath [facility] - 10/21/17 18:30 Anion Gap 13 6-14 BUN 7 mg/dL 5-25 Calcium 8.1 mg/dL 8.3-10.4 Chloride 108 mmol/L 95-114 CO2 23 mEq/L 22-33 Creat 0.69 mg/dL 0.50-1.50 eGFR 94 mL/min/1.73m2 >59 Glucose 204 mg/dL 70-110 Osmo 291 280-295 Potassium 4.5 mmol/L 3.5-5.3 Sodium 139 mmol/L 134-148 BMP - 10/22/17 08:33 Anion Gap 13 6-14 BUN 6 mg/dL 5-25 Calcium 7.9 mg/dL 8.3-10.4 Chloride 108 mmol/L 95-114 CO2 25 mEq/L 22-33 Creat 0.73 mg/dL 0.50-1.50 eGFR 88 mL/min/1.73m2 >59 Glucose 152 mg/dL 70-110 Osmo 294 280-295 Potassium 3.9 mmol/L 3.5-5.3 Sodium 142 mmol/L 134-148 Other Culture - 11/24/17 16:44 PRELIM CULTURE RESULTS Abundant Coag Negative Staph ALONA / ID to Follow MEDIA PLATED Setup at 15:24 on 11/26/2017 Sensi - 11/24/17 16:44 FINAL CULTURE RESULTS Staphylococcus warneri (Isolate 1) Ampicillin/Sulbactam <=8/4 Ampicillin <=2 Amoxicillin/K Clavulanate <=4/2 Ceftriaxone <=8 Clindamycin <=0.5 Cefoxitin Screen N/R Ciprofloxacin <=1 Daptomycin <=0.5 Erythromycin >4 Nitrofurantoin <=32 Gentamicin <=4 Gentamicin Synergy Screen N/R Inducible Clindamycin <=4/0.5 Levofloxacin <=1 Linezolid <=1 Moxifloxacin <=0.5 Oxacillin <=0.25 Penicillin 2 Rifampin <=1 Streptomycin Synergy N/R Synercid <=0.5 Trimethoprim/ Sulfamethoxazole <=0.5/9.5 Tetracycline <=4 Vancomycin 2 Urinalysis - 01/31/18 15:29 Icotest N/A Negative Urine Volume Urine Volume Insufficient (<10mL) May Affect Microscopic Exam Urine Yeast No Yeast present Urine-Appearance Slightly Cloudy Clear Urine-Bacteria Trace Urine-Bilirubin Negative Negative Urine-Blood 3+ Negative Urine-Color Red Colorless-Lt. Yellow Urine-Epithelial Cells 5-10/HPF Urine-Glucose Negative Negative Urine-Ketones 3+ Negative Urine-Leukocytes Negative Negative Urine-Mucus 1+ Urine-Nitrite Negative Negative Urine-Other Urine Saved if Culture Needed (48hrs from time of collection) Urine-pH 5.5 5-8.5 Urine-Protein 1+ Negative Urine-RBC TNTC Urine-Specific [place] >=1.030 1.000-1.030 Urine-WBC Negative Urobilinogen 2.0 E.U./dL 0.2-1.0 Albumin - 04/23/18 09:34 Albumin 3.9 g/dL 3.6-5.1 Protime - 05/05/18 12:35 INR 1.1 1.0-4.0 Protime 13.3 Sec 9.9-12.8 BMP - 05/05/18 12:35 Anion Gap 14 6-14 BUN 8 mg/dL 5-25 Calcium 8.8 mg/dL 8.3-10.4 Chloride 110 mmol/L 95-114 CO2 21 mEq/L 22-33 Creat 0.74 mg/dL 0.50-1.50 eGFR 86 mL/min/1.73m2 >59 Glucose 133 mg/dL 70-110 Osmo 291 280-295 Potassium 3.9 mmol/L 3.5-5.3 Sodium 141 mmol/L 134-148 Encounters ACCT No. Visit Date/Time Discharge Status Pt. Type Provider Facility Loc./Unit Complaint [id number] 08/14/2014 11:07:00 08/14/2014 23:59:59 [facility] Outpatient SEAN REDMOND DO [id number] 03/03/2014 09:03:00 03/03/2014 23:59:59 [facility] Outpatient SEAN REDMOND DO [id number] 11/09/2012 10:50:00 11/09/2012 23:59:59 CLS Outpatient [id number] 05/14/2018 08:35:00 05/14/2018 12:42:00 DIS Outpatient Mikey Gonzáles [id number] 05/05/2018 11:58:00 05/05/2018 23:59:00 DIS Outpatient gIgy Gonzálesbharath [id number] 04/23/2018 08:35:00 04/23/2018 23:59:00 DIS Outpatient Iggy Gonzálesbharath [id number] 01/31/2018 15:07:00 01/31/2018 17:15:00 DIS Outpatient Hector Donahue [id number] 11/24/2017 16:43:00 11/24/2017 23:59:00 DIS Outpatient VANESSA BULLARD [id number] 10/21/2017 07:29:00 10/22/2017 18:52:00 DIS Inpatient Eliecer Iggybharath [facility] [id number] 10/20/2017 11:58:00 10/20/2017 23:59:00 DIS Outpatient Iggy Gonzálesbharath [id number] 10/02/2017 08:48:00 10/02/2017 12:40:00 DIS Outpatient Eliecer Iggybharath [id number] 09/18/2017 00:00:00 09/18/2017 09:28:00 DIS Outpatient EliecerIggy alarconbharath [id number] 09/14/2017 14:01:00 09/14/2017 23:59:00 DIS Outpatient IGOR MARCH [id number] 09/14/2017 11:06:00 09/14/2017 23:59:00 DIS Outpatient Mikey Gonzáles [id number] 09/03/2017 11:09:00 09/03/2017 23:59:00 DIS Outpatient VANESSA BULLARD [id number] 03/18/2017 17:31:00 03/18/2017 23:59:00 DIS Outpatient VANESSA BULLARD [id number] 09/18/2017 10:04:36 Document Registration [id number] 10/24/2017 21:07:00 Document Registration [id number] 10/25/2017 13:08:00 Document Registration [id number] 10/23/2017 02:08:00 Document Registration [id number] 10/25/2017 16:09:00 Document Registration [id number] 05/05/2018 11:58:00 Document Registration [id number] 05/31/2018 11:37:00 05/31/2018 23:59:59 CLS Preadmit VANESSA BULLARD MD [facility] REHAB LUMBAR PAIN/ RADICULOPATHY [id number] 05/11/2018 09:51:00 05/11/2018 23:59:59 CLS Outpatient VANESSA BULLARD MD [facility] RAD LUMBAR/THORACIC PAIN, L FOOT PAIN [id number] 04/17/2017 16:30:00 04/17/2017 17:28:00 DIS Emergency HECTOR DONAHUE APRN [facility] ER STOMACH PAIN/CRAMPING/ NAUSEA [id number] 03/26/2017 10:45:00 03/26/2017 16:35:00 DIS Outpatient KINZA BURROWS MD [facility] SDC BILIARY DYSKINESIA [id number] 03/25/2017 14:24:00 03/25/2017 14:45:00 DIS Outpatient KINZA BURROWS MD [facility] PREOP BILIARY DYSKINESIA
[2018-07-31] MEDS ORDERED: KETOROLAC 60 MG/2 ML VIAL IM ONE ×2 (15:00→16:00)
[2018-07-31] MEDS ORDERED: ORPHENADRINE 60 MG/2 ML (NORFLEX) AMP IM ONE (15:00)
--- NOTE | 2018-07-31 16:17 | ED General ---
General Chief Complaint: General Problems/Pain Stated Complaint: CANT MOVE HEAD,STIFF NECK,HEAD PRESSURE,CHEST PAIN Nursing Triage Note: ARRIVED VIA AMB WITH COMPLAINTS OF RIGHT SIDED SHOULDER/NECK/HEAD/ EYE PAIN SINCE 0300.0 Nursing Sepsis Screen: No Definite Risk Source of Information: Patient, Family Exam Limitations: No Limitations History of Present Illness Date Seen by Provider: Jul 31, 2018 Time Seen by Provider: 15:45 Initial Comments The patient is a 43-year-old white female who presents with chief complaint of neck and head pain. She reports that she was awakened last night after 0300 with said pain. The pain radiated up the back of her neck and into the right side of the scalp. This included the occipital, temporal and parietal areas. She also noted blurring of vision on the right. She had no past history of migraines. She noted that her neck was so tight that she could not rotated to the right. Timing/Duration: 12-24 Hours Associated Systoms: Denies Symptoms Allergies and Home Medications Allergies Coded Allergies: NKANo Known Allergies (Verified Allergy, Unknown, 12/29/05) Home Medications No Active Prescriptions or Reported Meds Patient Home Medication List Home Medication List Reviewed: Yes Review of Systems Review of Systems Constitutional: see HPI EENTM: blurred vision Respiratory: no symptoms reported Cardiovascular: no symptoms reported Gastrointestinal: no symptoms reported Genitourinary: no symptoms reported Musculoskeletal: no symptoms reported Skin: no symptoms reported Psychiatric/Neurological: No Symptoms Reported Hematologic/Lymphatic: No Symptoms Reported Immunological/Allergic: no symptoms reported Past Zmfkzhb-Xmrqae-Tjfxay Hx Patient Social History Alcohol Use: Denies Use Alcohol Beverage of Choice: Beer Recreational Drug Use: No Smoking Status: Never a Smoker Type Used: Cigarettes Former Smoker, Quit: Aug 25, 2016 Recent Foreign Travel: No Contact w/Someone Who Travel: No Recent Infectious Disease Expo: No Recent Hopitalizations: No Immunizations Up To Date Tetanus Booster (TDap): Unknown Seasonal Allergies Seasonal Allergies: No Past Medical History Surgeries: Yes (C/S x4 ) Appendectomy, Section, Gallbladder, Hysterectomy, Tonsillectomy Respiratory: No Cardiac: Yes High Cholesterol Neurological: No [employer] History: Hysterectomy Gastrointestinal: Yes Gall Bladder Disease Musculoskeletal: Yes Arthritis, Chronic Back Pain Endocrine: No Loss of Vision: Denies Hearing Impairment: Denies Cancer: No Psychosocial: No Integumentary: No Blood Disorders: No Physical Exam Vital Signs Vital Signs - First Documented 07/31/18 14:32 Temp 98.0 Pulse 66 Resp 16 B/P (MAP) 117/78 (91) Pulse Ox 99 Capillary Refill : Less Than 3 Seconds Height, Weight, BMI Height: 5'1.00" Weight: 170lbs. 0.0oz. 77.295779sq; 48.8 BMI Method:Stated General Appearance: Mild Distress, Moderate Distress Eyes: Bilateral Eye Normal Inspection HEENT: Normal ENT Inspection Respiratory: Chest Non Tender, Lungs Clear, Normal Breath Sounds, No Accessory Muscle Use, No Respiratory Distress Cardiovascular: Regular Rate, Rhythm, No Edema, No Gallop, No JVD, No Murmur, Normal Peripheral Pulses Gastrointestinal: Normal Bowel Sounds, No Organomegaly, No Pulsatile Mass, Non Tender, Soft Back: Normal Inspection, No CVA Tenderness, No Vertebral Tenderness Extremity: Normal Capillary Refill, Normal Inspection, Normal Range of Motion, Non Tender, No Calf Tenderness, No Pedal Edema Skin: Normal Color, Warm/Dry Lymphatic: No Adenopathy Comments The palpation of the patient's neck showed the right paravertebral muscles to be tight as a bowstring. The right sternocleidomastoid was also tight but not to that degree. There was pain to rightward rotation and 2 lateral movement as well. Progress/Results/Core Measures Suspected Sepsis Recent Fever Within 48 Hours: No Infection Criteria Present: None New/Unexplained Altered Menta: No Sepsis Screen: No Definite Risk SIRS Temperature:98.0 Pulse: 66 Respiratory Rate: 16 Blood Pressure 117 /78 Mean: 91 Results/Orders My Orders Orders - PRISCILLA SAGE MD Ketorolac Injection (Toradol Injection) (07/31/18 16:00) Medications Given in ED Current Medications Medications Dose Ordered Sig/Adelaida Route Start Time Stop Time Status Last Admin Dose Admin Ketorolac Tromethamine 60 mg ONCE ONCE IM 07/31/18 16:00 07/31/18 16:01 DC 07/31/18 16:08 60 MG Orphenadrine Citrate 60 mg ONCE ONCE IM 07/31/18 15:00 07/31/18 15:01 DC 07/31/18 15:17 60 MG Vital Signs/I&O 07/31/18 14:32 Temp 98.0 Pulse 66 Resp 16 B/P (MAP) 117/78 (91) Pulse Ox 99 Capillary Refill : Less Than 3 Seconds Blood Pressure Mean: 91 Departure Communication (Admissions) The patient expressed concerns about taking Toradol as she has had a gastric Bypass procedure for weight loss. She was instructed never to take NSAIDs. She was assured that this applied to oral NSAIDs. She then agreed to take a Toradol injection. Impression Primary Impression: torticollis Disposition: HOME, SELF-CARE Condition: Improved Departure-Patient Inst. Decision time for Depature: 16:17 Referrals: VANESSA BULLARD MD (PCP/Family) Primary Care Physician Add. Discharge Instructions: All discharge instructions reviewed with patient and/or family. Voiced understanding. Take tramadol as necessary for pain Take Flexeril for muscle spasm. Do your best to align your neck in a neutral position which is to say straight down the middle. Acquire one of the [employer] castillo bags and heat this in your microwave and then apply to your neck. You have been also given a limited amount of tramadol for pain relief Scripts No Active Prescriptions or Reported Meds PRISCILLA SAGE MD Jul 31, 2018 16:17
[2018-07-31] MEDS ORDERED: Flexeril (16:30)
[2018-07-31] MEDS ORDERED: TRAM50TA2 PO (16:30)
[2018-07-31 16:43] VITALS: BP 99/67
== END 2018-07-31 16:43 | disposition home or self-care (01) ==
LOC: EDUNIT# 14:04 → ER 14:06
DX: M43.6 Torticollis (principal); E78.00 Pure hypercholesterolemia, unspecified; Z87.448 Personal history of other diseases of urinary system; Z98.890 Other specified postprocedural states; Z90.710 Acquired absence of both cervix and uterus; Z87.891 Personal history of nicotine dependence; Z90.89 Acquired absence of other organs
CPT/HCPCS: 96372; 99284

== ENCOUNTER 2019-08-09 20:00 | Emergency (ER) | payer MEDICAID ==
[~2019-08-09] VITALS: Ht 175 cm; Wt 82.0 kg
[~2019-08-09 20:00] MED LIST changes: +Flexeril; +TRAM50TA2 PO
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
[2019-08-09] MEDS ORDERED: HYDROcodone/APAP 5 MG/325 MG (LORTAB) TAB PO ONE (21:00)
[2019-08-09 21:04] VITALS: BP 121/73
== END 2019-08-09 21:04 | disposition home or self-care (01) ==
LOC: EDUNIT# 20:00 → ER 20:01
DX: S97.111A Crushing injury of right great toe, initial encounter (principal); E78.00 Pure hypercholesterolemia, unspecified; F17.210 Nicotine dependence, cigarettes, uncomplicated; Z90.49 Acquired absence of other specified parts of digestive tract; Z90.89 Acquired absence of other organs; Z90.710 Acquired absence of both cervix and uterus; Z88.6 Allergy status to analgesic agent; Y04.0XXA Assault by unarmed brawl or fight, initial encounter
CPT/HCPCS: 73660

== ENCOUNTER → 2019-12-27 | Outpatient (REF) ==
[~2019-12-27] MED LIST changes: -TRAM50TA2 PO; +TRM50T PO
--- NOTE | 2019-12-27 13:48 | Diagnostic Imaging Report ---
PROCEDURE: CT head and CT cervical spine without contrast. TECHNIQUE: Multiple contiguous axial images were obtained through the brain and cervical spine without the use of intravenous contrast. Sagittal and coronal reformations through the cervical spine were then performed. Auto Exposure Controls were utilized during the CT exam to meet ALARA standards for radiation dose reduction. INDICATION: Head and neck injury. COMPARISON: No prior studies are available for comparison. FINDINGS: CT HEAD: Ventricles and sulci are within normal limits. No sulcal effacement or midline shift is detected. No acute intra-axial or extra-axial hemorrhage is detected. Cisterns are patent. Visualized paranasal sinuses demonstrate mucosal thickening of the left maxillary sinus. IMPRESSION: No acute intracranial process is detected. CT CERVICAL SPINE: Alignment is normal. There is multilevel degenerative disc disease. There are large anterior osteophytes at the C5-C6 and C6-C7 levels. No fractures are identified. Prevertebral tissues are normal. Odontoid is intact. IMPRESSION: Cervical spondylosis. No acute bony abnormality is detected. Dictated by: Dictated on workstation # [id number]
== END | disposition home or self-care (01) ==
LOC: OCC 12:54
PROVIDERS: ATTEND Nurse Practitioner Family
CPT/HCPCS: 70450; 72125

== ENCOUNTER 2022-02-25 06:52 | Emergency (ER) | payer MEDICAID ==
[~2022-02-25] VITALS: Ht 154.9 cm; Wt 88.9 kg
[2022-02-25] MEDS ORDERED: fentaNYL INJ 100 MCG/2 ML AMP IVP ONE (07:30)
[2022-02-25] MEDS ORDERED: NS IV 1000 ML 1,000 ML IV SCH ×2 (07:30→08:30)
[2022-02-25] MEDS ORDERED: ONDANSETRON 4 MG/2 ML (SDV) Z0FRAN IVP ONE (07:30)
--- NOTE | 2022-02-25 07:34 | ED Abdominal Pain ---
General Chief Complaint: - Reproductive Stated Complaint: BLOODY URINE Nursing Triage Note: PT C/O INABILITY TO VOID AND ABD PAIN SINCE LAST NIGHT. PT STATES WHEN SHE WENT TO BATHROOM THIS AM AND SHE WAS "GUSHING BLOOD". Source of Information: Patient Exam Limitations: No Limitations History of Present Illness Date Seen by Provider: Feb 25, 2022 Time Seen by Provider: 07:22 Initial Comments Patient is a 46-year-old female who presents to the emergency department today with a chief complaint of blood per vagina or in her urine onset this morning in association with lower abdominal pain that started yesterday. Patient states that she drank 2 monsters and had some "preworkout" yesterday, did elliptical training. She states after that had gradual onset of symptoms. She states the pain is in her right lower quadrant and radiates down both thighs. She states she strained to urinate all night last night and has a significant urge to pee. She describes a "burning" in her lower abdomen. She has never had pain like this before. She is status post hysterectomy with 1 remaining ovary. She has a history of irritable bowel syndrome, her last bowel movement was on Thursday. Nonblack nonbloody. No fevers or chills. She is very nauseous. She has had gastric sleeve surgery, 4 C-sections in addition to the hysterectomy. She is on no daily medications. She does not tolerate NSAIDs very well secondary to stomach upset. She has had kidney stones in the past but states this is different. Denies any vaginal sores or lesions. Last pelvic exam was 15 years ago after the of her last child. All other review of systems reviewed and negative except as stated. Timing/Duration: 24 Hours Severity/Quality: Severe ("9") Location: RLQ Radiation: Other (bilateral thighs) Activities at Onset: Activity (after work out) Modifying Factors: Worsens With Movement Associated Symptoms: Nausea/Vomiting Allergies and Home Medications Allergies Coded Allergies: NKANo Known Allergies (Verified Allergy, Unknown, 12/29/05) ibuprofen (Verified Adverse Reaction, Mild, Abdominal Pain, 08/09/19) Patient Home Medication List Home Medication List Reviewed: Yes Tramadol HCl (Tramadol HCl) 50 Mg Tablet, 50 MG PO 4 times a day Prescribed by: PRISCILLA SAGE on 07/31/18 1630 [Flexeril] , 10 MG twice a day Prescribed by: PRISCILLA SAGE on 07/31/18 1630 Review of Systems Review of Systems Constitutional: see HPI, malaise EENTM: No Symptoms Reported Respiratory: No Symptoms Reported Cardiovascular: No Symptoms Reported Gastrointestinal: Abdominal Pain, Nausea Genitourinary: Burning, Hematuria Musculoskeletal: muscle cramps Skin: no symptoms reported Psychiatric/Neurological: No Symptoms Reported All Other Systems Reviewed Negative Unless Noted: Yes Past Uszlvfe-Ibmkes-Jcbzqd Hx Patient Social History Tobacco Use?: Yes Use of E-Cig and/or Vaping dev: Yes E-Cig or Vaping type used: Nicotine Use of E-Cig and/or Vaping Gurwinder: Current Everyday User Substance use?: No Alcohol Use?: Yes Alcohol Frequency: Once in a while Pt feels they are or have been: No Immunizations Up To Date Tetanus Booster (TDap): Unknown PED Vaccines UTD: Yes First/Initial COVID19 Vaccinat: YES Second COVID19 Vaccination Vishal: YES Seasonal Allergies Seasonal Allergies: No Past Medical History Surgeries: Yes (C/S x4, GASTRIC SLEEVE) Abdominal, Appendectomy, Section, Gallbladder, Hysterectomy, Tonsillectomy Respiratory: No Cardiac: Yes High Cholesterol 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 0.0oz. [id number]; 37.00 BMI Method:Stated General Appearance: WD/WN, no apparent distress HEENT: PERRL/EOMI Neck: normal inspection Respiratory: lungs clear, normal breath sounds, no respiratory distress, no accessory muscle use Cardiovascular: regular rate, rhythm Gastrointestinal: soft, abnormal bowel sounds (quiet), tenderness (diffuse, more in the lower quadrants bilaterally) Extremities: normal range of motion, non-tender, normal inspection Neurologic/Psychiatric: alert, normal mood/affect, oriented x 3 Skin: normal color, warm/dry Progress/Results/Core Measures Results/Orders Lab Results Laboratory Tests Test 02/25/22 07:40 02/25/22 09:35 Range/Units White Blood Count 15.3 H 4.3-11.0 10^3/uL Red Blood Count 4.85 3.80-5.11 10^6/uL Hemoglobin 14.0 11.5-16.0 g/dL Hematocrit 43 35-52 % Mean Corpuscular Volume 89 80-99 fL Mean Corpuscular Hemoglobin 29 25-34 pg Mean Corpuscular Hemoglobin Concent 32 32-36 g/dL Red Cell Distribution Width 14.3 10.0-14.5 % Platelet Count 308 130-400 10^3/uL Mean Platelet Volume 9.1 9.0-12.2 fL Immature Granulocyte % (Auto) 1 % Neutrophils (%) (Auto) 83 H 42-75 % Lymphocytes (%) (Auto) 9 L 12-44 % Monocytes (%) (Auto) 7 0-12 % Eosinophils (%) (Auto) 0 0-10 % Basophils (%) (Auto) 1 0-10 % Neutrophils # (Auto) 12.7 H 1.8-7.8 10^3/uL Lymphocytes # (Auto) 1.3 1.0-4.0 10^3/uL Monocytes # (Auto) 1.0 0.0-1.0 10^3/uL Eosinophils # (Auto) 0.1 0.0-0.3 10^3/uL Basophils # (Auto) 0.1 0.0-0.1 10^3/uL Immature Granulocyte # (Auto) 0.1 0.0-0.1 10^3/uL Neutrophils % (Manual) 88 % Lymphocytes % (Manual) 8 % Monocytes % (Manual) 4 % Ella Cells MODERATE Sodium Level 138 135-145 MMOL/L Potassium Level 3.6 3.6-5.0 MMOL/L Chloride Level 105 98-107 MMOL/L Carbon Dioxide Level 20 L 21-32 MMOL/L Anion Gap 13 5-14 MMOL/L Blood Urea Nitrogen 9 7-18 MG/DL Creatinine 0.84 0.60-1.30 MG/DL Estimat Glomerular Filtration Rate 87 BUN/Creatinine Ratio 11 Glucose Level 133 H 70-105 MG/DL Calcium Level 8.5 8.5-10.1 MG/DL Total Creatine Kinase 31 29-168 U/L Urine Color YELLOW Urine Clarity CLEAR Urine pH 7.0 5-9 Urine Specific [place] 1.010 L 1.016-1.022 Urine Protein NEGATIVE NEGATIVE Urine Glucose (UA) NEGATIVE NEGATIVE Urine Ketones NEGATIVE NEGATIVE Urine Nitrite NEGATIVE NEGATIVE Urine Bilirubin NEGATIVE NEGATIVE Urine Urobilinogen 1.0 < = 1.0 MG/DL Urine Leukocyte Esterase 2+ H NEGATIVE Urine RBC (Auto) 3+ H NEGATIVE Urine RBC 5-10 H /HPF Urine WBC 50-100 H /HPF Urine Squamous Epithelial Cells 0-2 /HPF Urine Crystals NONE /LPF Urine Bacteria MODERATE H /HPF Urine Casts NONE /LPF Urine Mucus NEGATIVE /LPF Urine Culture Indicated YES My Orders Orders - EVER MADISON MD Ed Iv/Invasive Line Start (02/25/22 07:29) Cbc With Automated Diff (02/25/22 07:29) Basic Metabolic Panel (02/25/22 07:29) Ua Culture If Indicated (02/25/22 07:29) Bladder Scan (02/25/22 07:29) Ns Iv 1000 Ml (Sodium Chloride 0.9%) (02/25/22 07:30) Fentanyl Inj (Sublimaze Injection) (02/25/22 07:30) Ondansetron Injection (Zofran Injectio (02/25/22 07:30) Creatine Kinase (02/25/22 07:34) Manual Differential (02/25/22 07:40) Ns Iv 1000 Ml (Sodium Chloride 0.9%) (02/25/22 08:30) Ct Abd/Pelvis Wo(Kidney Stone) (02/25/22 08:33) Morphine Injection (Morphine Injection (02/25/22 08:39) Morphine Injection (Morphine Injection (02/25/22 09:29) Us Non Ob Pelvis Comp/Transvag (02/25/22 09:28) Urine Culture (02/25/22 09:35) Ceftriaxone 1 Gm Pre-Mix (Rocephin 1 Gm (02/25/22 10:15) Ketorolac Injection (Toradol Injection) (02/25/22 10:15) Pantoprazole Injection (Protonix Injecti (02/25/22 10:15) Phenazopyridine Tablet (Pyridium Tablet) (02/25/22 10:30) Medications Given in ED Current Medications Medications Dose Ordered Sig/Adelaida Route Start Time Stop Time Status Last Admin Dose Admin Ceftriaxone Sodium/Dextrose 50 ml @ 100 mls/hr ONCE ONCE IV 02/25/22 10:15 02/25/22 10:44 DC 02/25/22 10:34 100 MLS/HR Fentanyl Citrate 50 mcg ONCE ONCE IVP 02/25/22 07:30 02/25/22 07:31 DC 02/25/22 08:06 50 MCG Ketorolac Tromethamine 15 mg ONCE ONCE IVP 02/25/22 10:15 02/25/22 10:16 DC 02/25/22 10:34 15 MG Ondansetron HCl 4 mg ONCE ONCE IVP 02/25/22 07:30 02/25/22 07:31 DC 02/25/22 07:47 4 MG Pantoprazole 40 mg ONCE ONCE IV 02/25/22 10:15 02/25/22 10:16 DC 02/25/22 10:34 40 MG Phenazopyridine HCl 100 mg ONCE ONCE PO 02/25/22 10:30 02/25/22 10:31 DC 02/25/22 10:34 100 MG Vital Signs/I&O 02/25/22 07:10 Temp 37.0 Pulse 88 Resp 18 B/P (MAP) 123/84 (97) Pulse Ox 99 O2 Delivery Room Air Blood Pressure Mean: 97 Progress Progress Note #1: Time: 08:18 Progress Note bedside bladder scan = 87ml Progress Note #2: Time: 08:40 Progress Note Patient states pain slightly improved in abdomen, more in her back right now. Labs reviewed - leukocytosis. otherwise chem WNL. No urine output yet. CT renal stone protocol ordered. Progress Note #3: Time: 10:49 Progress Note Patient reevaluated still with some discomfort now some epigastric discomfort but patient believes is attributable to the morphine given. CT was unremarkable, it did show a little free fluid in the pelvis. It did show a right ovarian cyst. Pelvic ultrasound followed this which demonstrated a 2 cm right ovarian cyst with intact blood flow. Again confirms the small amount of free fluid in the pelvis. Patient's did spontaneously void an infected appearing urine. Added some Toradol, 1 g of Rocephin and some Pyridium to the patient's medications. We will discharge her on cefdinir. Will also advise [id number] Azo and give her a few pills of tramadol for the belly pain. Return precautions discussed. All questions are sought and answered. Patient is stable for discharge. Diagnostic Imaging Diagonstic Imaging: CT Comments [facility] [place], [place] NAME: NEFTALY WESTON [facility] REC#: [id number] PT STATUS: REG ER : 1975 PHYSICIAN: EVER MADISON MD ADMIT DATE: 02/25/22/ER Draft Date of Exam:02/25/22 CT ABD/PELVIS WO(KIDNEY STONE) PROCEDURE: CT urinary tract, rule out kidney stone. TECHNIQUE: Multiple contiguous axial images were obtained through the abdomen and pelvis without the use of intravenous contrast. Auto Exposure Controls were utilized during the CT exam to meet ALARA standards for radiation dose reduction. INDICATION: Flank pain COMPARISON: 12/18/2009 There is persistent scarring in the basilar aspect of lingula and right middle lobe. There has been surgical changes along the greater curvature of stomach. Gallbladder surgically absent. Unenhanced images reveal no focal hepatic, pancreatic or splenic lesion. Air-fluid level in the retroperitoneum may represent duodenal diverticulum just below superior mesenteric artery. Right kidney is stable and unremarkable. There is a punctate nonobstructing stone in the upper pole left kidney. No hydronephrosis or hydroureter is identified. Uterus is surgically absent. There are prominent cysts present within the ovarian remnants bilaterally which reaches up to approximately 2.7 cm on the right. Unopacified bladder is unremarkable. There is evidence of focal inflammation or organized fluid collection. IMPRESSION: Punctate nonobstructing stone is seen in the upper pole left kidney. Otherwise, no acute abnormalities identified although prominent cysts are noted within the ovarian remnants bilaterally. Dictated on workstation # [id number] Dict: 02/25/22 [id number] Trans: 02/25/22 0913 [facility] [id number] Interpreted by: RADHA GUADALUPE MD Electronically signed by: Veronica [facility]. [place], [place] NAME: NEFTALY WESTON MED REC#: [id number] PT STATUS: REG ER : 1975 PHYSICIAN: EVER MADIOSN MD ADMIT DATE: 02/25/22/ER Draft Date of Exam:02/25/22 US NON OB PELVIS COMP/TRANSVAG PROCEDURE: US Non-ob pelvis comp/trans. TECHNIQUE: Multiple realtime grayscale images were obtained of the pelvis in various projections endovaginally. Transabdominal imaging was also performed. INDICATION: Severe pelvic pain. COMPARISON: CT abdomen and pelvis from earlier same day FINDINGS: Hysterectomy. The right ovary measures 4.3 x 2.8 x 3.1 cm and there is a dominant cyst measuring 3.5 x 2.0 x 2.0 cm. This has no concerning features. Blood flow is present in the right ovary by color Doppler imaging. The left ovary is obscured by bowel gas as it was seen on CT. Trace simple free pelvic fluid. IMPRESSION: 1. Simple cyst/dominant follicle within the right ovary measures 3.5 cm. No right ovarian torsion. 2. The left ovary is not identified due to surrounding bowel gas. 3. Trace simple free pelvic fluid. Dictated on workstation # [id number] Dict: 02/25/22 1033 Trans: 02/25/22 1039 [facility] [id number] Interpreted by: CLARISSA BAUER MD Electronically signed by: Departure Impression Primary Impression: Urinary tract infection Qualified Codes: N39.0 - Urinary tract infection, site not specified; R31.9 - Hematuria, unspecified Additional Impression: Abdominal pain Qualified Codes: R10.84 - Generalized abdominal pain Disposition: 01 HOME, SELF-CARE Condition: Improved Departure-Patient Inst. Decision time for Depature: 10:51 Referrals: NO,LOCAL PHYSICIAN (PCP/Family) Primary Care Physician Patient Instructions: Urinary Tract Infection, Adult (DC) Add. Discharge Instructions: Please push plenty of fluids at home to stay well-hydrated. Start your oral antibiotics tomorrow and complete a 7-day course. [id number] Azo/Pyridium as directed on the packaging for bladder spasm/pain. I have given you a prescription for tramadol you can take 1 every 6 hours as needed with food for pain as well. Please come back to the emergency department for worsening abdominal pain especially with fever, vomiting or any other emergent concerning symptoms. Please follow-up with your primary care provider. Scripts Tramadol HCl (Tramadol HCl) 50 Mg Tablet 50 MG PO Q6H PRN for PAIN, #8 TAB 0 Refills Prov: EVER MADISON MD 02/25/22 Cefdinir (Cefdinir) 300 Mg Capsule 300 MG PO BID, #14 CAP 0 Refills Prov: EVER MADISON MD 02/25/22 EVER MADISON MD Feb 25, 2022 07:34
[2022-02-25 07:45] LABS: BASOPHILS # (AUTO) 0.1 10^3/uL (0.0-0.1); BASOPHILS % (AUTO) 1 % (0-10); EOSINOPHILS # (AUTO) 0.1 10^3/uL (0.0-0.3); EOSINOPHILS % (AUTO) 0 % (0-10); HEMATOCRIT 43 % (35-52); LYMPHOCYTES # (AUTO) 1.3 10^3/uL (1.0-4.0); LYMPHOCYTES % (AUTO) 9 % (12-44); MEAN CORPUSCULAR HEMOGLOBIN 29 pg (25-34); MEAN CORPUSCULAR HGB CONC 32 g/dL (32-36); MEAN CORPUSCULAR VOLUME 89 fL (80-99); MEAN PLATELET VOLUME 9.1 fL (9.0-12.2); MONOCYTES % (AUTO) 7 % (0-12); NEUTROPHILS # (AUTO) 12.7 10^3/uL (1.8-7.8); NEUTROPHILS % (AUTO) 83 % (42-75); PLATELET COUNT 308 10^3/uL (130-400); WHITE BLOOD COUNT 15.3 10^3/uL (4.3-11.0)
[2022-02-25 08:01] LABS: POTASSIUM 3.6 MMOL/L (3.6-5.0)
[2022-02-25 08:03] LABS: CALCIUM 8.5 MG/DL (8.5-10.1)
[2022-02-25 08:07] LABS: CREATININE SERUM 0.84 MG/DL (0.60-1.30)
[2022-02-25 08:19] LABS: LYMPHOCYTES % (MANUAL) 8 %; MONOCYTES % (MANUAL) 4 %; NEUTROPHILS % (MANUAL) 88 %
[2022-02-25 08:23] LABS: BURR CELLS MODERATE
[2022-02-25] MEDS ORDERED: morphine INJ 10 MG/ML 1ML (SYR OR VIAL) IVP STA ×2 (08:39→09:29)
--- NOTE | 2022-02-25 09:14 | Diagnostic Imaging Report ---
PROCEDURE: CT urinary tract, rule out kidney stone. TECHNIQUE: Multiple contiguous axial images were obtained through the abdomen and pelvis without the use of intravenous contrast. Auto Exposure Controls were utilized during the CT exam to meet ALARA standards for radiation dose reduction. INDICATION: Flank pain COMPARISON: 12/18/2009 There is persistent scarring in the basilar aspect of lingula and right middle lobe. There has been surgical changes along the greater curvature of stomach. Gallbladder surgically absent. Unenhanced images reveal no focal hepatic, pancreatic or splenic lesion. Air-fluid level in the retroperitoneum may represent duodenal diverticulum just below superior mesenteric artery. Right kidney is stable and unremarkable. There is a punctate nonobstructing stone in the upper pole left kidney. No hydronephrosis or hydroureter is identified. Uterus is surgically absent. There are prominent cysts present within the ovarian remnants bilaterally which reaches up to approximately 2.7 cm on the right. Unopacified bladder is unremarkable. There is evidence of focal inflammation or organized fluid collection. IMPRESSION: Punctate nonobstructing stone is seen in the upper pole left kidney. Otherwise, no acute abnormalities identified although prominent cysts are noted within the ovarian remnants bilaterally. Dictated by: Dictated on workstation # [id number]
[2022-02-25 09:56] LABS: BILIRUBIN,URINE NEGATIVE (NEGATIVE); CLARITY,URINE CLEAR; COLOR,URINE YELLOW; GLUCOSE, URINE (UA) NEGATIVE (NEGATIVE); KETONES,URINE NEGATIVE (NEGATIVE); LEUKOCYTE ESTERASE ,URINE 2+ (NEGATIVE); NITRITE,URINE NEGATIVE (NEGATIVE); PROTEIN,URINE NEGATIVE (NEGATIVE)
[2022-02-25 10:04] LABS: BACTERIA,URINE MODERATE /HPF; SQUAMOUS EPITHELIAL CELL,UR 0-2 /HPF; WBC,URINE 50-100 /HPF
[2022-02-25] MEDS ORDERED: KETOROLAC 30 MG/ML VIAL IVP ONE (10:15)
[2022-02-25] MEDS ORDERED: PANTOPRAZOLE 40 MG (PROTONIX) VIAL IV ONE (10:15)
[2022-02-25] MEDS ORDERED: cefTRIAXone 1 GM PRE-MIX 50 ML IV ONE (10:15)
[2022-02-25] MEDS ORDERED: PHENAZOPYRIDINE 100 MG (PYRIDIUM) TABLET PO ONE (10:30)
--- NOTE | 2022-02-25 10:39 | Diagnostic Imaging Report ---
PROCEDURE: US Non-ob pelvis comp/trans. TECHNIQUE: Multiple realtime grayscale images were obtained of the pelvis in various projections endovaginally. Transabdominal imaging was also performed. INDICATION: Severe pelvic pain. COMPARISON: CT abdomen and pelvis from earlier same day FINDINGS: Hysterectomy. The right ovary measures 4.3 x 2.8 x 3.1 cm and there is a dominant cyst measuring 3.5 x 2.0 x 2.0 cm. This has no concerning features. Blood flow is present in the right ovary by color Doppler imaging. The left ovary is obscured by bowel gas as it was seen on CT. Trace simple free pelvic fluid. IMPRESSION: 1. Simple cyst/dominant follicle within the right ovary measures 3.5 cm. No right ovarian torsion. 2. The left ovary is not identified due to surrounding bowel gas. 3. Trace simple free pelvic fluid. Dictated by: Dictated on workstation # [id number]
[2022-02-25] MEDS ORDERED: TRM50T PO (10:53)
[2022-02-25] MEDS ORDERED: CEFD300C3 PO (10:53)
[2022-02-25 11:30] VITALS: BP 116/80
== END 2022-02-25 11:30 | disposition home or self-care (01) ==
LOC: EDUNIT# 06:52 → ER 06:56
DX: N39.0 Urinary tract infection, site not specified (principal); F17.290 Nicotine dependence, other tobacco product, uncomplicated
CPT/HCPCS: 36415; 74176; 76830; 76856; 80048; 81000; 82550; 85007; 85027; 87077; 87088; 87186